=== PATIENT | male | born 1960 | race Caucasian/White ===

== ENCOUNTER 2024-06-29 17:49 | Emergency (ER) | payer MEDICARE, MEDICAID, SELFPAY ==
[2024-06-29] VITALS (12 sets, daily range): BP systolic 96–112; BP diastolic 56–73; PULSE 86–98; RESP 16–42; TEMP 36.2; O2SAT 92–98; BMI 29.6
--- NOTE | 2024-06-29 18:01 | DI.RAD.S_ITS ---
PROCEDURE: XR CHEST 1V INDICATIONS: chest pain TECHNIQUE: One view of the chest was acquired. COMPARISON: None. FINDINGS: Surgical changes and devices: None. Lungs and pleura: Generalized interstitial prominence can be seen. There is a small right-sided pleural effusion. No pneumothorax is seen. Mediastinum: Mediastinal contours appear normal. Heart size is moderately enlarged. Bones and chest wall: No suspicious bony lesions. Age-appropriate bony degenerative changes are seen. Overlying soft tissues appear unremarkable. IMPRESSION: There is moderate cardiomegaly with interstitial prominence and a right-sided pleural effusion. CHF is suspected. Dictated by: Manoj Allison M.D. on 06/29/2024 at 17:53 Approved by: Manoj Allison M.D. on 06/29/2024 at 17:54
--- NOTE | 2024-06-29 18:03 | EKG_ITS ---
[address] [address] Test Date: 2024-06-29 Pat Name: Justin Peña Department: Room: Gender: Male Labor Relations Officer: GOKUL : 1960 Requested By: Order Number: [id number] Reading MD: Roberto Ge MD Measurements Intervals [place] Rate: 88 P: 64 DE: 148 QRS: -31 QRSD: 90 T: 134 QT: 390 QTc: 471 Interpretive Statements Sinus rhythm with occasional premature ventricular complexes Left axis deviation Low voltage QRS Nonspecific ST and T wave abnormality Prolonged QT Electronically Signed On 06-30-2024 8:25:26 PDT by Roberto Ge MD
[2024-06-29] MEDS: ALBUTEROL/IPRATROPIUM 3 ML AMPUL INH (18:08)
--- NOTE | 2024-06-29 18:19 | ED_ITS ---
HPI - General Adult General Chief complaint: Shortness of Breath/Dyspnea Stated complaint: SOB Time Seen by Provider: 06/29/24 18:01 Mode of arrival: Ambulatory History of Present Illness HPI narrative: 64-year-old gentleman currently at [facility] living, history of congestive heart failure, COPD, thromboembolism, pulmonary and bilateral lower extremities, hypertension, hyperlipidemia and diabetes. Recent discharge from [facility] May 24 with heart failure, pleural effusion, pneumonia and acute respiratory failure with hypoxia records have been requested patient continues to smoke, states that he is being given all of his medications. Notes increasing lower extremity edema, orthopnea and dyspnea particularly exertional dyspnea. No palpitations, chest pain, productive cough, headache. He is on 2 L of oxygen at baseline. Brought in by medics for evaluation of increasing dyspnea and lower extremity edema. Related Data Allergies Allergy/AdvReac Type Severity Reaction Status Date / Time codeine Allergy Verified 06/29/24 17:50 Review of Systems Review of Systems Narrative: Pertinent positive and negative findings as per HPI Patient History Medical History (Updated 06/29/24 @ 21:41 by Tootie Forde MD) Tobacco use Hypertension Diabetes History of pulmonary embolism COPD (chronic obstructive pulmonary disease) Systolic heart failure Social History Smoking Status: Current every day smoker Smoking Status: Current every day smoker tobacco type: cigarettes Exam Initial Vital Signs Initial Vital Signs: Vital Signs Temperature 97.2 F L 06/29/24 17:50 Pulse Rate 89 06/29/24 17:50 Respiratory Rate 19 06/29/24 17:50 Blood Pressure 112/73 06/29/24 17:50 Pulse Oximetry 97 06/29/24 17:50 Oxygen Delivery Method Nasal Cannula 06/29/24 17:50 Oxygen Flow Rate 2.5 06/29/24 17:50 General: Chronically ill-appearing, somewhat disheveled, speaking 4-5 word sentences on 2.5 nasal cannula oxygen HEENT: Moist mucous membranes, normal sclera with reactive pupils, Respiratory: Lungs with audible wheeze from in the doorway after initial DuoNeb. Scattered wheeze throughout all lung badillo but relatively good air movement. Cardiac: Regular rate and rhythm no murmurs no bruits Abdomen: Soft, obese, nontender, no rebound or guarding, no flank pain Skin: Warm and dry, no rashes Neurologic: Grossly neurologically intact with no obvious asymmetries or abnormalities Extremities: No trauma, 1+ bilateral lower extremity edema with chronic stasis changes Psych: Cooperative, anxious, fluent thought process Course Orders Ordered: ED Orders 06/29/24 18:00 BNP [NT-proBNP (BNP-Adult 18+)] Stat Complete Blood Count AUTO DIFF Stat Comprehensive Metabolic Panel Stat Troponin & CK Cardiac Panel Stat 06/29/24 18:01 XR chest 1V Stat EKG-12 Lead Stat 06/29/24 18:50 Respiratory Panel (Film Array) Stat urine tox [Urine Drug Screen, Rapid] Stat Discontinued Medications Albuterol/Ipratropium (Albuterol/Ipratropium 3 Ml Ampul) 3 ml INH NOW ONE Stop: 06/29/24 18:02 Last Admin: 06/29/24 18:08 Dose: 3 ml Documented By: PALMER Furosemide (Furosemide 40 Mg/4 Ml Vial) 80 mg IV NOW ONE Stop: 06/29/24 18:59 Last Admin: 06/29/24 19:04 Dose: Not Given Documented By: RED Furosemide 80 mg/ Sodium (Chloride) 58 mls @ 116 mls/hr IV NOW ONE Stop: 06/29/24 18:37 Last Infusion: 06/29/24 19:50 Dose: Infused Documented By: Admin: 06/29/24 19:12 Dose: 116 mls/hr Documented By: ALEXIS Methylprednisolone (Methylprednisolone 125 Mg/2 Ml Vial) 125 mg IV NOW ONE Stop: 06/29/24 18:02 Last Admin: 06/29/24 18:25 Dose: 125 mg Documented By: BISI Vital Signs Vital signs: Vital Signs - 8 hr 06/29/24 17:50 06/29/24 18:09 06/29/24 18:10 Temperature 97.2 F L Pulse Rate 89 86 86 Respiratory Rate 19 16 21 Blood Pressure 112/73 Pulse Oximetry 97 96 98 Oxygen Delivery Method Nasal Cannula Nasal Cannula Oxygen Flow Rate 2.5 06/29/24 18:30 06/29/24 18:30 06/29/24 19:00 Temperature Pulse Rate 86 Respiratory Rate Blood Pressure 109/61 101/71 Pulse Oximetry 95 Oxygen Delivery Method Oxygen Flow Rate 06/29/24 19:00 06/29/24 19:30 04/19/25 19:31 Temperature Pulse Rate 86 91 H Respiratory Rate 17 38 H Blood Pressure 96/56 L Pulse Oximetry 98 95 Oxygen Delivery Method Oxygen Flow Rate 06/29/24 19:31 06/29/24 20:00 06/29/24 20:00 Temperature Pulse Rate 91 H 93 H Respiratory Rate 37 H 37 H Blood Pressure 98/70 Pulse Oximetry 95 94 Oxygen Delivery Method Oxygen Flow Rate 06/29/24 20:30 06/29/24 20:36 06/29/24 21:00 Temperature Pulse Rate 92 H 98 H 91 H Respiratory Rate 29 H 22 42 H Blood Pressure Pulse Oximetry 94 94 94 Oxygen Delivery Method Room Air Oxygen Flow Rate Medical Decision Making Lab Data 06/29/24 18:00 06/29/24 18:00 Labs: Lab Results 06/29/24 06/29/24 Range/Units 18:00 18:50 WBC 9.7 (4.5-11.0) X10^3/uL RBC 4.07 L (4.5-5.9) X10^6/uL Hgb 11.7 L (13.5-17.5) g/dL Hct 36.2 L (41-53) % MCV 89.0 (80-100) fL MCH 28.8 (26-34) PG MCHC 32.4 (30-36) % RDW 17.1 H (11.6-14.8) % Plt Count 145 L (150-400) X10^3/uL Neut % (Auto) 57.7 (50-75) % Lymph % (Auto) 21.5 L (25-40) % [place] % (Auto) 12.2 (3-14) % Eos % (Auto) 7.7 H (2-4) % Baso % (Auto) 0.9 (0-2) % Neut # (Auto) 5600 (3354-9611) /uL Lymph # (Auto) 2100 (2971-3320) /uL [place] # (Auto) 1200 H (0-900) /uL Eos # (Auto) 700 H (0-450) /uL Baso # (Auto) 100 (0-100) /uL Sodium 139 (137-145) mmol/L Potassium 4.4 (3.4-5.1) mmol/L Chloride 103 (98-107) mmol/L Carbon Dioxide 29 (22-32) mmol/L BUN 26 H (9-20) mg/dL Creatinine 1.19 (0.66-1.25) mg/dL Estimated GFR > 60 (>60) mL/min BUN/Creatinine Ratio 21.8 (6-22) Glucose 116 H (80-110) mg/dL Calcium 8.3 L (8.4-10.2) mg/dL Total Bilirubin 0.7 (0.2-1.3) mg/dL AST 35 (17-59) IU/L ALT 21 (<50) IU/L Alkaline Phosphatase 55 (38-126) U/L Total Creatine Kinase 145 (55-170) U/L Troponin I 0.142 H* (0.01-0.034) ng/mL NT-Pro-B Natriuret Pep 7130 H (<125) pg/mL Total Protein 8.0 (6.3-8.2) g/dL Albumin 4.1 (3.5-5.0) g/dL Globulin 3.9 (1.7-4.1) g/dL Albumin/Globulin Ratio 1.1 (1.0-2.8) U Opiates 300ng/mL cut Negative (Negative) Ur Oxycodone Screen Negative (Negative) Urine Methadone Screen Negative (Negative) Ur Barbiturates Screen Negative (Negative) U Tricyclic Antidepress Negative (Negative) Ur Phencyclidine Scrn Negative (Negative) Ur Amphetamines Screen Negative (Negative) U Methamphetamines Scrn Negative (Negative) Ur MDMA Scrn (Ecstasy) Negative (Negative) U Benzodiazepines Scrn Negative (Negative) Urine Cocaine Screen Negative (Negative) U Marijuana (THC) Screen Negative (Negative) Urine pH Normal (Normal) Urine Specific [place] Normal (Normal) Ur Creatinine Normal (Normal) Chlamy pneumoniae PCR Not detected (Not Detect) Adenovirus (PCR) Not detected (Not Detect) B. pertussis DNA (PCR) Not detected (Not Detect) B.parapertussis DNA PCR Not detected (Not Detecte) Coronavirus OC43 (PCR) Not detected (Not Detect) Coronavirus HKU1 (PCR) Not detected (Not Detect) Coronavirus 229E (PCR) Not detected (Not Detect) SARS-CoV-2 (PCR) Not detected (Not Detecte) Coronavirus NL63 (PCR) Not detected (Not Detect) Human Metapneumovir PCR Not detected (Not Detect) Influenza Type A (PCR) Not detected (Not Detect) Influenza Type B (PCR) Not detected (Not Detect) M. pneumoniae (PCR) Not detected (Not Detect) Parainfluenza 1 (PCR) Not detected (Not Detect) Parainfluenza 2 (PCR) Not detected (Not Detect) Parainfluenza 3 (PCR) Not detected (Not Detect) Parainfluenza 4 (PCR) Not detected (Not Detect) RSV (PCR) Not detected (Not Detect) Entero/Rhino (PCR) Not detected (Not Detect) MDM Narrative Medical decision making narrative: CC: Dyspnea Complicating co-morbidities: COPD, heart failure, recent pleural effusion that was drained, discharge from [facility] May 24 for similar presentation, Data collected from: patient, summary records from [facility] Social determinants of health that may influence the patients condition: Currently at [facility], homeless prior to that Medical records reviewed: Notes from [facility], ROSI report, records from [facility] have been requested Discussion with Dr. Ramirez, electric fan assembler at [facility] to review recent hospitalization, workup and imaging studies. On June 05 patient was discharged from [facility] his ejection fraction is 16%, there is history of methamphetamine use and abuse. He has a chronic right pleural effusion that has been tapped and is not infectious. He was discharged home with Eliquis, Flovent, mirtazapine, spironolactone, Lasix at 40 mg daily, albuterol, Jardiance, lisinopril, metoprolol and an Ellipta inhaler. In reviewing [facility] MAR it does appear that he is getting all of these medications. Discussed his chest x-ray showing significant heart failure as well as his elevated BNP and slightly elevated troponin. He has a chronically elevated troponin and Dr. Raimrez did not feel that this was related to acute coronary syndrome. His recommendation was diuresis and continue current treatment. Differential considered: Pneumothorax, COPD exacerbation, exacerbation of congestive heart failure, viral syndrome exacerbating all of the above, acute coronary syndrome Exam documented above, pertinent findings include: Patient is anxious, tachypneic, speaking in 4-5 word sentences significant wheeze in all lung badillo without obvious rhonchi, 1+ bilateral lower extremity edema Lab Test results independently reviewed as above. Pertinent findings: CBC shows mild anemia at 11.7 and 36.2. No leukocytosis. Platelets are 145 Chemistries show creatinine at 1.19 GFR greater than 60, sodium potassium appropriate. Liver enzymes are unremarkable Trop elevated at .142 BNP elevated at 7130 neg resp panel Independently reviewed EKG: Sinus rhythm, PVCs. Lateral ST depression, no STEMI criteria are met Imaging studies independently reviewed: Chest x-ray shows right pleural effusion, diffuse congestive heart failure with cardiomegaly Consultations: Cardiology at [facility], recommendation was diuresis continue current medications did not need heparin or additional workup for acute coronary syndrome Treatments: 80 mg of IV Lasix was given with over 1200 cc of urine out. Discussion: 64-year-old gentleman in moderate respiratory distress on arrival. Able to speak in 4-5 word sentences, had increased his home oxygen slightly. Diffuse wheeze throughout, increased lower extremity edema. Describes no fevers or productive cough. Workup suggests significant heart failure with chronically elevated troponin and response to the heart failure severity. Remainder of blood work was unremarkable, respiratory panel was done and did not show any complicating respiratory virus. Findings reviewed with the patient and my recommendation was hospitalization for diuresis. With shared decision-making, we decided to change that plan to outpatient increase in Lasix from 40 mg in the morning to 40 mg twice a day. He is feeling significantly better and symptoms are significantly improved after the more than 1200 cc of urine out in the emergency department. Discharge instructions including note to [facility] to increase his Lasix are printed and he is waiting for his BLS ride back to [facility]. Patient becomes increasingly agitated and demands to leave. He was allowed to leave, he called for a CAB from the waiting room. We did contact [facility] to send his discharge instructions to them, let them know he is coming back and make sure they are aware of the increased Lasix dosing. Discharge Plan Departure Patient Disposition: Home Clinical Impression: Chronic pleural effusion Acute exacerbation of CHF (congestive heart failure) Qualifiers: Heart failure type: unspecified Qualified Code(s): I50.9 - Heart failure, unspecified Instructions: Congestive Heart Failure (Alternative Therapy) Activity Restrictions/Additional Instructions: Thank you for coming in today I spoke with 1 of the cardiologists at [facility] and reviewed all of your recent workup and findings. You do have a small effusion on the right side of your lungs that actually is better than it was before You have congestive heart failure and are having an acute exacerbation. We need to increase her Lasix. In the emergency department you were given 80 mg and you have put out over 1200 cc. This is likely why you feel so much better and her back to your baseline oxygen level. For the next week I want you to increase your furosemide from 40 mg once a day to 40 mg in the morning and at noon. Please ask the staff at your assisted living facility to help you find and establish care with a primary care physician. You do need hospital follow up You had some slightly abnormal labs in the emergency room today however these are similar to improved from your recent hospital stay. We discussed going home versus staying in the hospital and you very much preferred home discharge. If you find that you are having more short of breath, chest pain or things are changing it would be very appropriate to return to the ER For [facility] staff: Please change Lasix order to 40 mg of Lasix p.o. morning and noon for a total of 7 days then return to 40 mg in the morning only Referrals: Miscellaneous,Doctor, [Non-Staff] - Stand Alone Forms: Patient Portal/API/Survey
[2024-06-29 18:21] LABS: Add Manual Diff / Slide Review NO; Basophils Absolute Auto 100 /uL (0-100); Basophils Percent Auto 0.9 % (0-2); Eosinophils Absolute Auto 700 /uL (0-450); Eosinophils Percent Auto 7.7 % (2-4); Hematocrit 36.2 % (41-53); Hemoglobin 11.7 g/dL (13.5-17.5); Lymphocytes Absolute Auto 2100 /uL (1100-4500); Lymphocytes Percent Auto 21.5 % (25-40); Mean Corpuscular HGB Conc 32.4 % (30-36); Mean Corpuscular Hemoglobin 28.8 PG (26-34); Monocytes Absolute Auto 1200 /uL (0-900); Monocytes Percent Auto 12.2 % (3-14); Neutrophils Absolute Auto 5600 /uL (1500-7000); Neutrophils Percent Auto 57.7 % (50-75); Platelet Count 145 X10^3/uL (150-400); Red Blood Cell Count 4.07 X10^6/uL (4.5-5.9); Red Cell Distribution Width 17.1 % (11.6-14.8); White Blood Cell Count 9.7 X10^3/uL (4.5-11.0)
[2024-06-29 18:25] LABS: Alanine Aminotransferase 21 IU/L (<50); Albumin 4.1 g/dL (3.5-5.0); Albumin Globulin Ratio 1.1 (1.0-2.8); Alkaline Phosphatase 55 U/L (38-126); Aspartate Aminotransferase 35 IU/L (17-59); BUN Creatinine Ratio 21.8 (6-22); Bilirubin Total 0.7 mg/dL (0.2-1.3); Blood Urea Nitrogen 26 mg/dL (9-20); Calcium 8.3 mg/dL (8.4-10.2); Carbon Dioxide 29 mmol/L (22-32); Chloride 103 mmol/L (98-107); Estimated Glomerular Filt Rate > 60 mL/min (>60); Globulin 3.9 g/dL (1.7-4.1); Glucose 116 mg/dL (80-110); HEMOLYSIS 46 (0-50); Potassium 4.4 mmol/L (3.4-5.1); Sodium 139 mmol/L (137-145)
[2024-06-29] MEDS: methylPREDNISolone 125 MG/2 ML VIAL IV (18:25)
--- NOTE | 2024-06-29 18:40 | PC.NURSE ---
Pt reports improvement after breathing treatment. Mild expiratory wheezing note
[2024-06-29 18:57] LABS: Creatine Kinase 145 U/L (55-170)
[2024-06-29 19:02] LABS: Ur Creatinine Normal (Normal); Ur Specific Gravity Normal (Normal); Urine Amphetamines Negative (Negative); Urine Barbiturates Negative (Negative); Urine Benzodiazepines Negative (Negative); Urine Cocaine Negative (Negative); Urine MDMA Negative (Negative); Urine Methadone Negative (Negative); Urine Opiates Negative (Negative); Urine Oxycodone Negative (Negative); Urine Phencyclidine Negative (Negative); Urine THC Negative (Negative); Urine Tricyclic Antidepressant Negative (Negative); Urine pH Normal (Normal)
[2024-06-29 19:10] LABS: NT-proBNP (BNP-Adult 18+) 7130 pg/mL (<125)
[2024-06-29 19:12] LABS: Troponin I 0.142 ng/mL (0.01-0.034)
[2024-06-29] MEDS: FUROSEMIDE 80 MG in SODIUM CHLORIDE 0.9% 50 ML 116 MG IV (19:12)
--- NOTE | 2024-06-29 19:15 | PC.NURSE ---
Worsening sob today; expiratory wheezing. Edema noted on lower extremity. pt reports he has chf and copd. no cough. no recent fevers.
[2024-06-29 19:45] LABS: Adenovirus Not Detected (Not Detect); B. parapertussis Not Detected (Not Detecte); Bordetella pertussis Not Detected (Not Detect); Chlamydophila pneumoniae Not Detected (Not Detect); Coronavirus 229E Not Detected (Not Detect); Coronavirus HKU1 Not Detected (Not Detect); Coronavirus NL 63 Not Detected (Not Detect); Coronavirus OC43 Not Detected (Not Detect); Human Metapneumovirus Not Detected (Not Detect); Human Rhinovirus/Enterovirus Not Detected (Not Detect); Influenza A Not Detected (Not Detect); Influenza B Not Detected (Not Detect); Mycoplasma pneumoniae Not Detected (Not Detect); Parainfluenza Virus 1 Not Detected (Not Detect); Parainfluenza Virus 2 Not Detected (Not Detect); Parainfluenza Virus 3 Not Detected (Not Detect); Parainfluenza Virus 4 Not Detected (Not Detect); Respiratory Syncytial Virus Not Detected (Not Detect); SARS- CoV-2 Not Detected (Not Detecte)
--- NOTE | 2024-06-29 21:30 | PC.NURSE ---
Pt pacing around exam room swearing and yelling about wanting to leave, how long he has been here and Bitch, get in here and do your fucking job! Confirmed pt has no current needs other than wanting to leave. Pt continues to use aggressive language and yell but is not physically threatening. Exam room door closed to reduce noise from exam room, curtain open to facilitate increased observation.
--- NOTE | 2024-06-29 21:35 | PC.NURSE ---
Pt informed ambulance ([facility]) has been contacted to transport pt back to assisted living facility, ETA [id number]. Pt continues to use use inappropriate and aggressive language at staff. Exam room door again closed, curtain remains open for increased observation.
--- NOTE | 2024-06-29 22:25 | PC.NURSE ---
Pt walks out of exam room to exit doors and leave department at this time. Per registration taxi called per pt request.
== END 2024-06-29 22:25 | disposition home or self-care (01) ==
PROVIDERS: Emergency Medicine; Emergency Provider Emergency Medicine; PCP Anesthesiology Pediatric Anesthesiology
DX: J90 Pleural effusion, not elsewhere classified (principal); I50.9 Heart failure, unspecified; J44.9 Chronic obstructive pulmonary disease, unspecified; E11.9 Type 2 diabetes mellitus without complications; I10 Essential (primary) hypertension; E78.5 Hyperlipidemia, unspecified
CPT/HCPCS: 36415; 71045; 80053; 80305; 82550; 83880; 84484; 85025; 87633; 93005; 93010; 94640; 96365; 96375; 99285; J1938; J2919

== ENCOUNTER 2024-07-04 17:47 | Emergency (ER) | payer MEDICARE, MEDICAID, SELFPAY ==
[2024-07-04 17:48] VITALS: BP 124/79; PULSE 104; RESP 24; TEMP 36.6; O2SAT 96; BMI 30.2
--- NOTE | 2024-07-04 17:57 | DI.RAD.S_ITS ---
PROCEDURE: XR CHEST 1V INDICATIONS: Shortness of breath TECHNIQUE: One view of the chest was acquired. COMPARISON: [facility], , XR CHEST 1V, 06/29/2024, 18:06. FINDINGS: Surgical changes and devices: None. Lungs and pleura: No pneumothorax. Small right pleural effusion with subjacent atelectasis persists.. Increased interstitial markings. Mediastinum: Mediastinal contours appear normal. Heart size is enlarged. Bones and chest wall: No suspicious bony lesions. Overlying soft tissues appear unremarkable. IMPRESSION: Persistent small right pleural effusion with subjacent atelectasis. Cardiomegaly with persistent background of increased interstitial markings may represent mild pulmonary edema. Approved by: Maddy Marks M.D.,Ph.D. on 07/04/2024 at 19:07
[2024-07-04 18:09] LABS: Add Manual Diff / Slide Review NO; Basophils Absolute Auto 100 /uL (0-100); Basophils Percent Auto 1.3 % (0-2); Eosinophils Absolute Auto 600 /uL (0-450); Eosinophils Percent Auto 6.4 % (2-4); Hematocrit 37.2 % (41-53); Hemoglobin 12.1 g/dL (13.5-17.5); Lymphocytes Absolute Auto 2500 /uL (1100-4500); Lymphocytes Percent Auto 25.6 % (25-40); Mean Corpuscular HGB Conc 32.5 % (30-36); Mean Corpuscular Hemoglobin 28.8 PG (26-34); Mean Corpuscular Volume 88.5 fL (80-100); Monocytes Absolute Auto 1300 /uL (0-900); Monocytes Percent Auto 12.9 % (3-14); Neutrophils Absolute Auto 5300 /uL (1500-7000); Neutrophils Percent Auto 53.8 % (50-75); Platelet Count 140 X10^3/uL (150-400); Red Cell Distribution Width 16.8 % (11.6-14.8); White Blood Cell Count 9.8 X10^3/uL (4.5-11.0)
--- NOTE | 2024-07-04 18:11 | EKG_ITS ---
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
[2024-07-04] MEDS: ALBUTEROL/IPRATROPIUM 3 ML AMPUL 9 ML INH (18:15)
[2024-07-04 18:16] VITALS: PULSE 106; RESP 18; O2SAT 97
[2024-07-04 18:25] LABS: INR 1.4 (0.9-1.3); Prothrombin Time 16.1 SECONDS (9.4-12.5)
--- NOTE | 2024-07-04 18:27 | ED.SOB ---
HPI - SOB/Dyspnea General Chief Complaint: Shortness of Breath/Dyspnea Stated Complaint: SOB Time Seen by Provider: 07/04/24 18:15 Source: patient Mode of arrival: Ambulatory History of Present Illness HPI Narrative: 64-year-old gentleman history of COPD on home O2 2 L CHF hypertension dyslipidemia and diabetes and history of thromboembolism presents with cough shortness of breath that has been ongoing for some time now but over this past few days he has been more short of breath than usual. He said that he was at [facility] over 10 days ago and they drained few bottles of fluid from his right lung. He is not actively having chest pain and denies fever and chills at this time. Other than what is stated 14 point review of system is negative Related Data Allergies Allergy/AdvReac Type Severity Reaction Status Date / Time codeine Allergy Verified 06/29/24 17:50 Review of Systems Review of Systems ROS Unobtainable: All systems reviewed & are unremarkable except as noted in HPI and below Patient History Medical History (Updated 07/04/24 @ 19:26 by Janel Padilla RN) Tobacco use Hypertension Diabetes History of pulmonary embolism COPD (chronic obstructive pulmonary disease) Systolic heart failure tobacco type: cigarettes Exam Narrative Exam Narrative: GENERAL: 64 year old patient appears stated age. Well-developed patient, in mild distress. HEAD: Atraumatic. Normocephalic. EYES: Pupils equal round and reactive. Extraocular motions intact. No scleral icterus. No injection or drainage. ENT: Nose without bleeding, purulent drainage. Throat without erythema, tonsillar hypertrophy or exudate. Airway patent. NECK: Trachea midline. Non tender CARDIOVASCULAR: Regular rate and rhythm without murmurs, gallops, or rubs. RESPIRATORY: Diminshed breath sounds b/l , trace edema b/l GASTROINTESTINAL: Abdomen soft, non-tender, nondistended. EXTREMITIES: No edema or joint tenderness. BACK: Nontender without deformity or crepitance. No flank tenderness. NEURO: AOx3. SKIN: No rash or erythema of visible areas Initial Vital Signs Initial Vital Signs: Vital Signs Temperature 98 F 07/04/24 17:48 Pulse Rate 104 H 07/04/24 17:48 Respiratory Rate 24 07/04/24 17:48 Blood Pressure 124/79 07/04/24 17:48 Pulse Oximetry 96 07/04/24 17:48 Oxygen Delivery Method Nasal Cannula 07/04/24 17:48 Oxygen Flow Rate 2 07/04/24 17:48 Course Orders Ordered: ED Orders 07/04/24 17:57 XR chest 1V Stat EKG-12 Lead Stat Measure peak expiratory flow ONCE RT Consult Eval and Treat NOW 07/04/24 18:00 Complete Blood Count AUTO DIFF Stat Comprehensive Metabolic Panel Stat Lactate (Lactic Acid) Stat NT-proBNP (BNP-Adult 18+) Stat Prothrombin Time INR Stat Troponin I Stat Discontinued Medications Albuterol/Ipratropium (Albuterol/Ipratropium 3 Ml Ampul) 9 ml INH NOW ONE Stop: 07/04/24 18:04 Last Admin: 07/04/24 18:15 Dose: 9 ml Documented By: PALMER Furosemide (Furosemide 40 Mg/4 Ml Vial) 40 mg IV NOW ONE Stop: 07/04/24 18:50 Last Admin: 07/04/24 18:56 Dose: 40 mg Documented By: BISI Methylprednisolone (Methylprednisolone 125 Mg/2 Ml Vial) 125 mg IV NOW ONE Stop: 07/04/24 18:31 Last Admin: 07/04/24 18:37 Dose: 125 mg Documented By: BISI Vital Signs Vital signs: Vital Signs - 8 hr 07/04/24 17:48 07/04/24 18:16 07/04/24 18:57 Temperature 98 F Pulse Rate 104 H 106 H 101 H Respiratory Rate 24 18 22 Blood Pressure 124/79 Pulse Oximetry 96 97 95 Oxygen Delivery Method Nasal Cannula Nasal Cannula Oxygen Flow Rate 2 2 07/04/24 19:00 Temperature Pulse Rate 101 H Respiratory Rate 25 H Blood Pressure Pulse Oximetry 96 Oxygen Delivery Method Oxygen Flow Rate MDM - SOB/Dyspnea Lab Data 07/04/24 18:00 07/04/24 18:00 Labs: Lab Results 07/04/24 Range/Units 18:00 WBC 9.8 (4.5-11.0) X10^3/uL RBC 4.20 L (4.5-5.9) X10^6/uL Hgb 12.1 L (13.5-17.5) g/dL Hct 37.2 L (41-53) % MCV 88.5 (80-100) fL MCH 28.8 (26-34) PG MCHC 32.5 (30-36) % RDW 16.8 H (11.6-14.8) % Plt Count 140 L (150-400) X10^3/uL Neut % (Auto) 53.8 (50-75) % Lymph % (Auto) 25.6 (25-40) % [place] % (Auto) 12.9 (3-14) % Eos % (Auto) 6.4 H (2-4) % Baso % (Auto) 1.3 (0-2) % Neut # (Auto) 5300 (9828-5612) /uL Lymph # (Auto) 2500 (0112-1446) /uL [place] # (Auto) 1300 H (0-900) /uL Eos # (Auto) 600 H (0-450) /uL Baso # (Auto) 100 (0-100) /uL PT 16.1 H (9.4-12.5) SECONDS INR 1.4 H (0.9-1.3) Sodium 137 (137-145) mmol/L Potassium 4.0 (3.4-5.1) mmol/L Chloride 101 (98-107) mmol/L Carbon Dioxide 28 (22-32) mmol/L BUN 23 H (9-20) mg/dL Creatinine 1.17 (0.66-1.25) mg/dL Estimated GFR > 60 (>60) mL/min BUN/Creatinine Ratio 19.7 (6-22) Glucose 111 H (70-99) mg/dL Lactate 1.4 (0.7-2.1) mmol/L Calcium 8.3 L (8.4-10.2) mg/dL Total Bilirubin 0.7 (0.2-1.3) mg/dL AST 33 (17-59) IU/L ALT 21 (<50) IU/L Alkaline Phosphatase 58 (38-126) U/L Troponin I 0.169 H* (0.01-0.034) ng/mL NT-Pro-B Natriuret Pep 7800 H (<125) pg/mL Total Protein 8.1 (6.3-8.2) g/dL Albumin 4.4 (3.5-5.0) g/dL Globulin 3.7 (1.7-4.1) g/dL Albumin/Globulin Ratio 1.2 (1.0-2.8) ECG Data Interpretation: Sinus Tach No st-t wave change Unchanged from06/29/24 PR136 QRS 92 QT 368 MDM Narrative Medical decision making narrative: All lab work EKG chest x-ray vital signs nurse triage note medication list and all previous visits reviewed. Patient given Solu-Medrol 125 mg IV and Lasix 40 mg here. Case was discussed with Dr. White who was who was concerned patient has severe cardiomyopathy with ejection fraction of 16 70% from May of this here in [facility] the patient would be at risk to be sent home and needed to be diuresed. The construction quality control manager recommended patient be admitted to the hospitalist service and no aspirin or heparin at this time. Patient eloped while here in the ER Discharge Plan Departure Patient Disposition: Left Against Medical Advice Clinical Impression: Left against medical advice Referrals: Naif Lynne,See [Primary Care Provider] - Stand Alone Forms: Patient Portal/API, Against Med. Advice (Slovenian)
[2024-07-04 18:32] LABS: Lactate (Lactic Acid) 1.4 mmol/L (0.7-2.1)
[2024-07-04 18:34] LABS: Alanine Aminotransferase 21 IU/L (<50); Albumin 4.4 g/dL (3.5-5.0); Albumin Globulin Ratio 1.2 (1.0-2.8); Alkaline Phosphatase 58 U/L (38-126); Aspartate Aminotransferase 33 IU/L (17-59); BUN Creatinine Ratio 19.7 (6-22); Bilirubin Total 0.7 mg/dL (0.2-1.3); Blood Urea Nitrogen 23 mg/dL (9-20); Calcium 8.3 mg/dL (8.4-10.2); Carbon Dioxide 28 mmol/L (22-32); Chloride 101 mmol/L (98-107); Estimated Glomerular Filt Rate > 60 mL/min (>60); Globulin 3.7 g/dL (1.7-4.1); Glucose 111 mg/dL (70-99); HEMOLYSIS 16 (0-50); Sodium 137 mmol/L (137-145); Total Protein 8.1 g/dL (6.3-8.2)
[2024-07-04] MEDS: methylPREDNISolone 125 MG/2 ML VIAL IV (18:37)
[2024-07-04 18:45] LABS: NT-proBNP (BNP-Adult 18+) 7800 pg/mL (<125)
[2024-07-04 18:48] LABS: Troponin I 0.169 ng/mL (0.01-0.034)
--- NOTE | 2024-07-04 18:50 | PC.NURSE ---
Pt reports SOB x2-3 days. Pt seen here last week for same. Pt reports he is compliant with home meds. Pt states he feels better after nebulizer treatment; however he does not own one at home.
[2024-07-04] MEDS: FUROSEMIDE 40 MG/4 ML VIAL IV (18:56)
[2024-07-04 18:57] VITALS: PULSE 101; RESP 22; O2SAT 95
[2024-07-04 19:00] VITALS: PULSE 101; RESP 25; O2SAT 96
--- NOTE | 2024-07-04 19:20 | PC.NURSE ---
1919 patient took off bp cuff and states Im leaving, Im getting out of here, unhook me and take my IV out, I'll call a cab patient took home oxygen tubing with. 1929 Patient leaving AMA and declines to stay for further workup, I have been here too long Explained the patient has only been here 1 hour and 20 minutes in that time labs, xrays, and medications have been given. Patient states I dont care Asked patient what he wanted accomplished in the 1 hour 20 mins that we have not yet and he states nothing, Brook just been waiting too long PIV removed and patient ambulated independently to waiting area with coat, clothing, cellphone, and oxygen tubing for home to contact cab for ride home.
--- NOTE | 2024-07-04 19:29 | PC.NURSE ---
Pt called [facility], they called back due to missing someones call. Advised us that they will be 20 minutes. This nurse walked out to front of building to advise pt.
--- NOTE | 2024-07-05 04:52 | PC.NURSE ---
Paperwork faxed to [facility] for pt to follow up.
== END 2024-07-04 19:25 | disposition left against medical advice (07) ==
PROVIDERS: Emergency Medicine; Emergency Provider Family Medicine; PCP Anesthesiology Pediatric Anesthesiology
DX: R00.0 Tachycardia, unspecified (principal); J44.9 Chronic obstructive pulmonary disease, unspecified; R06.02 Shortness of breath
CPT/HCPCS: 71045; 80053; 83605; 83880; 84484; 85025; 85610; 93005; 93010; 94640; 96374; 96375; 99284; J1938; J2919

== ENCOUNTER 2024-07-06 19:43 | Emergency (ER) | payer MEDICARE, MEDICAID, SELFPAY ==
[2024-07-06] VITALS (13 sets, daily range): BP systolic 107–133; BP diastolic 61–77; PULSE 96–102; RESP 12–26; TEMP 36.3–36.6; O2SAT 92–99; BMI 27.3
--- NOTE | 2024-07-06 19:48 | EKG_ITS ---
[address] [address] Test Date: 2024-07-06 Pat Name: Justin Peña Department: Room: Gender: Male [employer]: : 1960 Requested By: Order Number: [id number] Reading MD: Roberto Ge MD Measurements Intervals [place] Rate: 100 P: 89 TX: 142 QRS: -31 QRSD: 88 T: 121 QT: 364 QTc: 469 Interpretive Statements NO SIGNIFICANT CHANGE FROM PRIOR TRACING Normal sinus rhythm Left axis deviation Pulmonary disease pattern Nonspecific T wave abnormality Prolonged QT Electronically Signed On 07-07-2024 7:58:10 PDT by Roberto Ge MD
--- NOTE | 2024-07-06 19:53 | DI.RAD.S_ITS ---
PROCEDURE: XR CHEST 1V INDICATIONS: Shortness of breath TECHNIQUE: One view of the chest was acquired. COMPARISON: [facility], CR, XR CHEST 1V, 06/29/2024, 18:06. Outside Facility, CR, XR CHEST 1V, 06/03/2024, 15:22. [facility], CR, XR CHEST 1V, 07/04/2024, 18:02. FINDINGS: Surgical changes and devices: None. Lungs and pleura: Generalized abnormal interstitial prominence is seen. There is blunting of the right costophrenic angle. No pneumothorax is seen. Low lung volumes can be seen, with a decreased inspiratory result compared to the prior. Mediastinum: Mediastinal contours appear normal. Heart size is moderately enlarged. Bones and chest wall: No suspicious bony lesions. Age-appropriate bony degenerative changes are seen. Overlying soft tissues appear unremarkable. IMPRESSION: Cardiomegaly with interstitial prominence and a right-sided pleural effusion. CHF is suspected. Dictated by: Manoj Allison M.D. on 07/06/2024 at 19:51 Approved by: Manoj Allison M.D. on 07/06/2024 at 19:52
[2024-07-06] MEDS: ALBUTEROL/IPRATROPIUM 3 ML AMPUL INH ×2 (20:00→20:36)
[2024-07-06 20:04] LABS: Add Manual Diff / Slide Review NO; Basophils Absolute Auto 100 /uL (0-100); Basophils Percent Auto 1.2 % (0-2); Eosinophils Absolute Auto 400 /uL (0-450); Hematocrit 38.5 % (41-53); Hemoglobin 12.4 g/dL (13.5-17.5); Lymphocytes Absolute Auto 2300 /uL (1100-4500); Lymphocytes Percent Auto 21.5 % (25-40); Mean Corpuscular HGB Conc 32.1 % (30-36); Mean Corpuscular Hemoglobin 28.4 PG (26-34); Mean Corpuscular Volume 88.6 fL (80-100); Monocytes Absolute Auto 1300 /uL (0-900); Monocytes Percent Auto 12.7 % (3-14); Neutrophils Absolute Auto 6400 /uL (1500-7000); Neutrophils Percent Auto 60.6 % (50-75); Platelet Count 148 X10^3/uL (150-400); Red Blood Cell Count 4.34 X10^6/uL (4.5-5.9); Red Cell Distribution Width 17.1 % (11.6-14.8); White Blood Cell Count 10.5 X10^3/uL (4.5-11.0)
[2024-07-06 20:05] LABS: INR 1.4 (0.9-1.3); Prothrombin Time 15.9 SECONDS (9.4-12.5)
[2024-07-06 20:07] LABS: Lactate (Lactic Acid) 1.6 mmol/L (0.7-2.1)
[2024-07-06 20:08] LABS: Alanine Aminotransferase 24 IU/L (<50); Albumin 4.4 g/dL (3.5-5.0); Albumin Globulin Ratio 1.2 (1.0-2.8); Alkaline Phosphatase 61 U/L (38-126); Aspartate Aminotransferase 33 IU/L (17-59); BUN Creatinine Ratio 26.3 (6-22); Bilirubin Total 0.7 mg/dL (0.2-1.3); Blood Urea Nitrogen 31 mg/dL (9-20); Calcium 8.6 mg/dL (8.4-10.2); Carbon Dioxide 29 mmol/L (22-32); Chloride 100 mmol/L (98-107); Estimated Glomerular Filt Rate > 60 mL/min (>60); Globulin 3.6 g/dL (1.7-4.1); Glucose 113 mg/dL (70-99); HEMOLYSIS < 15 (0-50); Sodium 138 mmol/L (137-145)
[2024-07-06 20:20] LABS: NT-proBNP (BNP-Adult 18+) 7270 pg/mL (<125); Troponin I 0.095 ng/mL (0.01-0.034)
[2024-07-06] MEDS: methylPREDNISolone 125 MG/2 ML VIAL IV (20:45)
--- NOTE | 2024-07-06 22:02 | ED.SOB ---
HPI - SOB/Dyspnea General Chief Complaint: Shortness of Breath/Dyspnea Stated Complaint: COPD SOB Time Seen by Provider: 07/06/24 20:28 Source: patient and EMS Mode of arrival: EMS Limitations: no limitations History of Present Illness HPI Narrative: 64-year-old male with history of chronic hypoxia 2 L nasal cannula at home, hypertension, cardiomyopathy, diabetes, hyperlipidemia, seen 2 days ago here for evaluation of shortness of breath with phone Cardiology consult to Dr. White who recommended admission, however at that time patient had eloped after receiving IV Solu-Medrol and IV Lasix and Atrovent breathing treatments. Patient reportedly had right-sided paracentesis at [facility] within the last couple of weeks. Patient states that he was at his [place] care facility tonight when he felt more short of breath. Denies chest pain. Related Data Allergies Allergy/AdvReac Type Severity Reaction Status Date / Time codeine Allergy Verified 06/29/24 17:50 Patient History Medical History (Updated 07/07/24 @ 00:15 by Angi Schultz RN) Tobacco use Hypertension Diabetes History of pulmonary embolism COPD (chronic obstructive pulmonary disease) Systolic heart failure Social History Smoking Status: Current every day smoker Smoking Status: Current every day smoker tobacco type: cigarettes Exam Narrative Exam Narrative: GENERAL: Well-developed patient, in mild distress. HEAD: Atraumatic. Normocephalic. EYES: Pupils equal round and reactive. Extraocular motions intact. No scleral icterus. No injection or drainage. ENT: Nose without bleeding, purulent drainage. Throat without erythema, tonsillar hypertrophy or exudate. Airway patent. NECK: Trachea midline. Non tender CARDIOVASCULAR: Regular rate and rhythm without murmurs, gallops, or rubs. RESPIRATORY: Clear to auscultation. Breath sounds equal bilaterally. No wheezes, rales, or rhonchi. GASTROINTESTINAL: Abdomen soft, non-tender, nondistended. EXTREMITIES: No edema or joint tenderness. BACK: Nontender without deformity or crepitance. No flank tenderness. NEURO: AOx3. Motor functions grossly nonfocal SKIN: No rash or erythema of visible areas Initial Vital Signs Initial Vital Signs: Vital Signs Pulse Rate 102 H 07/06/24 19:45 Respiratory Rate 20 07/06/24 19:45 Blood Pressure 128/77 07/06/24 19:45 Pulse Oximetry 92 07/06/24 19:45 Oxygen Delivery Method Nasal Cannula 07/06/24 19:45 Oxygen Flow Rate 3 07/06/24 19:45 Course Orders Ordered: ED Orders 07/06/24 21:45 Trop I [Troponin I] Stat Discontinued Medications Albuterol/Ipratropium (Albuterol/Ipratropium 3 Ml Ampul) 3 ml INH Q1H PRN PRN Reason: Shortness Of Breath Last Admin: 07/06/24 20:36 Dose: 3 ml Documented By: Albuterol/Ipratropium (Albuterol/Ipratropium 3 Ml Ampul) 3 ml INH NOW ONE Stop: 07/06/24 20:29 Furosemide (Furosemide 40 Mg/4 Ml Vial) 40 mg IV NOW ONE Stop: 07/06/24 22:16 Last Admin: 07/06/24 22:26 Dose: 40 mg Documented By: (2) Methylprednisolone (Methylprednisolone 125 Mg/2 Ml Vial) 125 mg IV NOW ONE Stop: 07/06/24 20:30 Last Admin: 07/06/24 20:45 Dose: 125 mg Documented By: KEYLA Vital Signs Vital signs: Vital Signs - 8 hr 07/06/24 22:00 07/06/24 22:31 07/06/24 23:00 Pulse Rate 96 H 96 H 97 H Respiratory Rate 20 17 17 Pulse Oximetry 97 96 Oxygen Delivery Method Nasal Cannula Nasal Cannula Oxygen Flow Rate 2 2 MDM - SOB/Dyspnea Lab Data Attestation: I reviewed the patient's lab results. Lab results narrative: White blood cell count 25785, hemoglobin 12.4, platelets adequate. BUN 31 with creatinine 1.18. Glucose 113. Electrolytes and carbon dioxide unremarkable. INR 1.4 normal. Lactate 1.6. BNP 7270 similarly elevated in recent visits. Troponin 0.095 indeterminate, was further elevated recent visit. 07/06/24 19:40 07/06/24 19:40 Labs: Lab Results 07/06/24 07/06/24 Range/Units 19:40 21:45 WBC 10.5 (4.5-11.0) X10^3/uL RBC 4.34 L (4.5-5.9) X10^6/uL Hgb 12.4 L (13.5-17.5) g/dL Hct 38.5 L (41-53) % MCV 88.6 (80-100) fL MCH 28.4 (26-34) PG MCHC 32.1 (30-36) % RDW 17.1 H (11.6-14.8) % Plt Count 148 L (150-400) X10^3/uL Neut % (Auto) 60.6 (50-75) % Lymph % (Auto) 21.5 L (25-40) % [place] % (Auto) 12.7 (3-14) % Eos % (Auto) 4.0 (2-4) % Baso % (Auto) 1.2 (0-2) % Neut # (Auto) 6400 (8068-7206) /uL Lymph # (Auto) 2300 (8144-6363) /uL [place] # (Auto) 1300 H (0-900) /uL Eos # (Auto) 400 (0-450) /uL Baso # (Auto) 100 (0-100) /uL PT 15.9 H (9.4-12.5) SECONDS INR 1.4 H (0.9-1.3) Sodium 138 (137-145) mmol/L Potassium 4.0 (3.4-5.1) mmol/L Chloride 100 (98-107) mmol/L Carbon Dioxide 29 (22-32) mmol/L BUN 31 H (9-20) mg/dL Creatinine 1.18 (0.66-1.25) mg/dL Estimated GFR > 60 (>60) mL/min BUN/Creatinine Ratio 26.3 H (6-22) Glucose 113 H (70-99) mg/dL Lactate 1.6 (0.7-2.1) mmol/L Calcium 8.6 (8.4-10.2) mg/dL Total Bilirubin 0.7 (0.2-1.3) mg/dL AST 33 (17-59) IU/L ALT 24 (<50) IU/L Alkaline Phosphatase 61 (38-126) U/L Troponin I 0.095 H 0.085 H (0.01-0.034) ng/mL NT-Pro-B Natriuret Pep 7270 H (<125) pg/mL Total Protein 8.0 (6.3-8.2) g/dL Albumin 4.4 (3.5-5.0) g/dL Globulin 3.6 (1.7-4.1) g/dL Albumin/Globulin Ratio 1.2 (1.0-2.8) ECG Data Attestation: I personally reviewed and interpreted this ECG as follows: Interpretation: Normal sinus rhythm with rate of 100, no obvious ST segment elevation or depression changes. Significant movement artifact however limits the study. HI 142, QRS 88, QTC 469. MDM Narrative Medical decision making narrative: 64-year-old male recently left 2 days ago eloped from this ER after initial treatment with IV Solu-Medrol and IV Lasix and breathing treatment Atrovent. History of CHF, history of COPD, cardiomyopathy, before he eloped there was phone consultation documentation on that visit 2 days ago with Cardiology at [facility], apparently patient had May 2024 echocardiogram showing ejection fraction 16-17%. Recommendation at that time for was for admission here for further titration of treatment of his CHF in a monitored setting, though he apparently eloped from the department. Now with a few hours duration of shortness of breath. EKG without obvious ischemic changes. Troponin upper indeterminate range, on repeat slightly decreased, lower range than previous visit when it was actually slightly positive. IV Solu-Medrol 125 mg given, IV Lasix 40 mg given, breathing treatment nebulized Atrovent given. Patient on his usual 2 L oxygen. He felt improved, advised admission as per cardiology recommendation documented 2 days ago, he refused, left the department against medical advice. Stated that he has an appointment with a lung specialist this Monday upcoming. Advised to follow up with that appointment. Return precautions discussed. Left the department against medical advice Discharge Plan Departure Patient Disposition: Left Against Medical Advice Clinical Impression: Left against medical advice Activity Restrictions/Additional Instructions: You did not want admission or further evaluation, and left the emergency department against medical advice. You were eloped from the emergency department 2 days ago after IV medications for heart and lung problems, and breathing treatment. You are advised at that time per cardiology phone consultation to be admitted for further titration of treatment for your cardiomyopathy and congestive heart failure. You eloped from that visit. You are again advised to be admitted for further titration of your chronic heart and lung problems. You again are refusing, against medical advice. You stated that you will be following up with your lung doctor in 2 days Monday. Follow up with that appointment. Return to this/nearest emergency department for any change worsening symptoms or any concerns prior. Referrals: Naif Lynne,See [Primary Care Provider] - Stand Alone Forms: Patient Portal/API, Against Med. Advice (Qatari)
[2024-07-06 22:17] LABS: Troponin I 0.085 ng/mL (0.01-0.034)
[2024-07-06] MEDS: FUROSEMIDE 40 MG/4 ML VIAL IV (22:26)
== END 2024-07-06 23:30 | disposition left against medical advice (07) ==
PROVIDERS: Emergency Provider Emergency Medicine; PCP Anesthesiology Pediatric Anesthesiology
DX: R06.02 Shortness of breath (principal)
CPT/HCPCS: 36415; 71045; 80053; 83605; 83880; 84484; 85025; 85610; 93005; 93010; 94640; 96374; 96375; 99285; J1938; J2919

== ENCOUNTER 2024-07-08 19:35 | Emergency (ER) | payer MEDICARE, MEDICAID, SELFPAY ==
[2024-07-08 19:38] VITALS: BMI 30.4
[2024-07-08 19:42] VITALS: BP 128/76; PULSE 100; RESP 26; TEMP 36.7; O2SAT 93
--- NOTE | 2024-07-08 19:45 | DI.RAD.S_ITS ---
PROCEDURE: XR CHEST 1V INDICATIONS: Shortness of breath TECHNIQUE: One view of the chest was acquired. COMPARISON: [facility], CR, XR CHEST 1V, 06/29/2024, 18:06. Outside Facility, CR, XR CHEST 1V, 04/20/2024, 22:51. Outside Facility, CT, CT ANGIO CHEST PE PROTOCOL, 04/17/2024, 16:32. [facility], CR, XR CHEST 1V, 07/06/2024, 20:06. [facility], CR, XR CHEST 1V, 07/04/2024, 18:02. FINDINGS: Surgical changes and devices: None. Lungs and pleura: Small right pleural effusion. Minimal opacity at the right lung base. Prominent interstitial markings. Emphysematous change seen on prior CT. Mediastinum: Mediastinal contours appear unchanged. Heart size is enlarged. Bones and chest wall: No suspicious bony lesions. Overlying soft tissues appear unremarkable. IMPRESSION: Small right pleural effusion. Minimal opacity at the right lung base. This could represent resolving pneumonia. Cardiomegaly. Dictated by: Joshua Whatley M.D. on 07/08/2024 at 20:33 Approved by: Joshua Whatley M.D. on 07/08/2024 at 20:36
--- NOTE | 2024-07-08 19:47 | EKG_ITS ---
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
[2024-07-08 20:35] LABS: Add Manual Diff / Slide Review NO; Basophils Absolute Auto 100 /uL (0-100); Basophils Percent Auto 1.4 % (0-2); Eosinophils Absolute Auto 300 /uL (0-450); Hematocrit 36.1 % (41-53); Hemoglobin 11.9 g/dL (13.5-17.5); Lymphocytes Absolute Auto 2300 /uL (1100-4500); Lymphocytes Percent Auto 21.8 % (25-40); Mean Corpuscular HGB Conc 32.9 % (30-36); Mean Corpuscular Volume 88.2 fL (80-100); Monocytes Absolute Auto 1300 /uL (0-900); Monocytes Percent Auto 12.2 % (3-14); Neutrophils Absolute Auto 6500 /uL (1500-7000); Neutrophils Percent Auto 61.6 % (50-75); Platelet Count 149 X10^3/uL (150-400); Red Blood Cell Count 4.09 X10^6/uL (4.5-5.9); Red Cell Distribution Width 17.2 % (11.6-14.8); White Blood Cell Count 10.6 X10^3/uL (4.5-11.0)
[2024-07-08 20:43] LABS: Lactate (Lactic Acid) 1.2 mmol/L (0.7-2.1)
[2024-07-08 20:45] LABS: Alanine Aminotransferase 24 IU/L (<50); Albumin 4.2 g/dL (3.5-5.0); Albumin Globulin Ratio 1.3 (1.0-2.8); Alkaline Phosphatase 46 U/L (38-126); Aspartate Aminotransferase 41 IU/L (17-59); BUN Creatinine Ratio 26.2 (6-22); Bilirubin Total 0.8 mg/dL (0.2-1.3); Blood Urea Nitrogen 33 mg/dL (9-20); Calcium 8.6 mg/dL (8.4-10.2); Carbon Dioxide 27 mmol/L (22-32); Chloride 103 mmol/L (98-107); Estimated Glomerular Filt Rate > 60 mL/min (>60); Globulin 3.3 g/dL (1.7-4.1); Glucose 112 mg/dL (70-99); Potassium 4.7 mmol/L (3.4-5.1); Sodium 138 mmol/L (137-145); Total Protein 7.5 g/dL (6.3-8.2)
[2024-07-08 20:47] LABS: HEMOLYSIS 78 (0-50)
[2024-07-08] MEDS: ALBUTEROL 2.5 MG/3 ML NEB (ADULT) INH (20:47)
[2024-07-08 20:50] VITALS: PULSE 96; RESP 20; O2SAT 98
[2024-07-08 20:54] LABS: INR 1.5 (0.9-1.3); Prothrombin Time 16.3 SECONDS (9.4-12.5)
[2024-07-08 20:56] LABS: NT-proBNP (BNP-Adult 18+) 8200 pg/mL (<125); Troponin I 0.061 ng/mL (0.01-0.034)
--- NOTE | 2024-07-08 22:19 | PC.NURSE ---
Pt continuously sitting in stretcher yelling This is the worst hospital in the world! Come on, this is bull shit! What the fuck is going on? Pt updated and redirected multiple time,. requests made for pt to lower voice and not use profanity. Pt continues. Pt now states I'm ready to leave! Confirmed with patient he wanted IV removed and to be detached from monitors. Yes, I wanna get the fuck out of here! Pt states need a taxi. Taxi called for pt.
== END 2024-07-08 22:25 | disposition left against medical advice (07) ==
PROVIDERS: Emergency Provider Emergency Medicine; PCP Anesthesiology Pediatric Anesthesiology
DX: R06.02 Shortness of breath (principal); I50.22 Chronic systolic (congestive) heart failure; J43.2 Centrilobular emphysema; F17.210 Nicotine dependence, cigarettes, uncomplicated
CPT/HCPCS: 36415; 71045; 80053; 83605; 83880; 84484; 85025; 85610; 93005; 94640; 99214; 99284; J7613

== ENCOUNTER 2024-07-10 10:09 | Emergency (ER) | payer MEDICARE, MEDICAID, SELFPAY ==
[2024-07-10] VITALS (14 sets, daily range): BP systolic 110–130; BP diastolic 57–76; PULSE 94–100; RESP 19–35; TEMP 36.5; O2SAT 91–99; BMI 33.1
--- NOTE | 2024-07-10 10:15 | ED_ITS ---
HPI - SOB/Dyspnea General Chief Complaint: Shortness of Breath/Dyspnea Stated Complaint: COPD SOB home O2 Time Seen by Provider: 07/10/24 10:12 History of Present Illness HPI Narrative: Patient [facility] in by ambulance [facility]. Patient there for cardiac rehab. Medical Assistant is in [place]. Patient continues to smoke. Has had multiple visits in the past 2 weeks here for COPD/CHF exacerbation. Patient is on 2 L nasal cannula at home continuously. EMS states he was labored breathing wheezing and very dyspneic on arrival on 2 L working hard with saturation 91%. Patient denies any chest pain.. Patient states he has not had any improvement with leg swelling. He did leave twice against medical advice in the past week. He was seen here June 29 July 04 and July 06. He does agree for admission here today. Related Data Home Medications Medication Instructions Recorded Confirmed albuterol sulfate 90 mcg/actuation See Rx Instructions .Route .COMPLEX 07/13/24 07/13/24 aerosol inhaler apixaban 5 mg tablet (Eliquis) 5 mg PO BID 07/13/24 07/13/24 empagliflozin 10 mg tablet 10 mg PO DAILY 07/13/24 07/13/24 (Jardiance) fluticasone propionate 115 2 puff inhalation BID 07/13/24 07/13/24 mcg-salmeterol 21 mcg/actuation HFA inhaler (Advair HFA) lisinopril 2.5 mg tablet 2.5 mg PO DAILY 07/13/24 07/13/24 metoprolol succinate 25 mg 25 mg PO DAILY 07/13/24 07/13/24 tablet,extended release 24 hr mirtazapine 30 mg tablet 30 mg PO ONCE PM 07/13/24 07/13/24 spironolactone 25 mg tablet 12.5 mg PO DAILY 07/13/24 07/13/24 umeclidinium 62.5 mcg/actuation 1 inh inhalation DAILY 07/13/24 07/13/24 blister powder for inhalation (Incruse Ellipta) Previous Rx's Medication Instructions Recorded furosemide 40 mg tablet (Lasix) 40 mg PO BID #60 tabs 07/10/24 Allergies Allergy/AdvReac Type Severity Reaction Status Date / Time codeine Allergy Severe Difficulty Verified 07/13/24 00:09 Breathing Review of Systems Review of Systems Narrative: GENERAL: Negative chills, fatigue, malaise, fever, sweats. HEENT: Negative sinus pain, ear pain, sore throat RESPIRATORY: Positive dyspnea, cough CARDIOVASCULAR: Negative chest pain, palpitations, positive peripheral edema GASTROINTESTINAL: Negative vomiting, nausea, abdominal pain : Negative dysuria, frequency, hematuria MUSCULOSKELETAL: Negative muscle or bony pain SKIN: Negative rash, skin lesions NEUROLOGIC: Negative weakness, numbness ROS Unobtainable: All systems reviewed & are unremarkable except as noted in HPI and below Patient History Medical History Centrilobular emphysema Cigarette nicotine dependence Congestive heart failure Tobacco use Hypertension Diabetes History of pulmonary embolism COPD (chronic obstructive pulmonary disease) Systolic heart failure Social History household members: none Smoking Status: Current every day smoker tobacco type: cigarettes Exam Narrative Exam Narrative: GENERAL: in no distress, not toxic not dyspneic HEAD: Normocephalic. EYES: Pupils equal round ENT: Mucous membranes moist. NECK: Trachea midline. CARDIOVASCULAR: Regular rate and rhythm RESPIRATORY: Coarse bilateral lung sounds with rales and mild wheezing. Patient speaking short sentences. GASTROINTESTINAL: Abdomen soft, non-tender EXTREMITIES: No gross deformities. 4+ bilateral ankle foot and leg edema. BACK: No flank tenderness. NEURO: AOx4. Clear speech SKIN: Warm and dry PSYCH: Not anxious, is cooperative Initial Vital Signs Initial Vital Signs: Vital Signs Pulse Rate 97 H 07/10/24 10:13 Respiratory Rate 30 H 07/10/24 10:13 Pulse Oximetry 97 07/10/24 10:13 Course Orders Ordered: Discontinued Medications Albuterol (Albuterol 2.5 Mg/3 Ml Neb (Adult)) 2.5 mg INH [id number] PRN PRN Reason: Shortness Of Breath Albuterol/Ipratropium (Albuterol/Ipratropium 3 Ml Ampul) 6 ml INH NOW ONE Stop: 07/10/24 10:15 Last Admin: 07/10/24 10:21 Dose: 6 ml Documented By: BISI Furosemide 60 mg/ Sodium (Chloride) 56 mls @ 112 mls/hr IV NOW ONE Stop: 07/10/24 10:20 Last Infusion: 07/10/24 11:16 Dose: Infused Documented By: Admin: 07/10/24 10:27 Dose: 112 mls/hr Documented By: BISI Methylprednisolone (Methylprednisolone 125 Mg/2 Ml Vial) 125 mg IV NOW ONE Stop: 07/10/24 10:15 Last Admin: 07/10/24 10:21 Dose: 125 mg Documented By: BISI Vital Signs Vital signs: Vital Signs - 8 hr 07/10/24 10:13 07/10/24 10:14 07/10/24 10:14 Temperature 97.7 F Pulse Rate 97 H 97 H 97 H Respiratory Rate 30 H 31 H 30 H Blood Pressure 118/70 Pulse Oximetry 97 97 97 Oxygen Delivery Method Room Air Oxygen Flow Rate 07/10/24 10:14 07/10/24 10:30 07/10/24 10:41 Temperature Pulse Rate 96 H 94 H Respiratory Rate 32 H 23 Blood Pressure 118/70 Pulse Oximetry 98 98 Oxygen Delivery Method Oxygen Flow Rate 07/10/24 10:41 07/10/24 10:50 07/10/24 11:00 Temperature Pulse Rate 99 H 97 H Respiratory Rate 24 22 Blood Pressure 116/73 Pulse Oximetry 95 98 Oxygen Delivery Method Simple Mask Oxygen Flow Rate 6 07/10/24 11:00 07/10/24 11:30 07/10/24 11:31 Temperature Pulse Rate 100 H 98 H Respiratory Rate 23 21 Blood Pressure 119/74 Pulse Oximetry 97 97 Oxygen Delivery Method Aerosol Mask Oxygen Flow Rate 07/10/24 11:31 07/10/24 12:00 07/10/24 12:00 Temperature Pulse Rate 98 H Respiratory Rate 19 Blood Pressure 130/76 121/57 L Pulse Oximetry 99 Oxygen Delivery Method Oxygen Flow Rate 07/10/24 12:30 07/10/24 12:30 07/10/24 13:00 Temperature Pulse Rate 97 H Respiratory Rate 20 Blood Pressure 110/63 111/64 Pulse Oximetry 93 Oxygen Delivery Method Nasal Cannula Oxygen Flow Rate 3 07/10/24 13:00 07/10/24 13:30 07/10/24 13:30 Temperature Pulse Rate 96 H 97 H Respiratory Rate 21 24 Blood Pressure 113/61 Pulse Oximetry 91 91 Oxygen Delivery Method Nasal Cannula Oxygen Flow Rate 2 07/10/24 14:00 07/10/24 14:00 07/10/24 14:30 Temperature Pulse Rate 97 H 99 H Respiratory Rate 19 35 H Blood Pressure 115/58 L Pulse Oximetry 92 91 Oxygen Delivery Method Oxygen Flow Rate 2 07/10/24 14:30 Temperature Pulse Rate Respiratory Rate Blood Pressure 112/67 Pulse Oximetry Oxygen Delivery Method Oxygen Flow Rate MDM - SOB/Dyspnea Lab Data 07/10/24 10:30 07/10/24 10:30 Labs: Lab Results 07/10/24 07/10/24 07/10/24 Range/Units 10:30 10:40 12:40 WBC 8.9 (4.5-11.0) X10^3/uL RBC 4.08 L (4.5-5.9) X10^6/uL Hgb 11.8 L (13.5-17.5) g/dL Hct 35.9 L (41-53) % MCV 88.2 (80-100) fL MCH 28.9 (26-34) PG MCHC 32.8 (30-36) % RDW 16.6 H (11.6-14.8) % Plt Count 144 L (150-400) X10^3/uL Neut % (Auto) 64.7 (50-75) % Lymph % (Auto) 18.7 L (25-40) % Christian % (Auto) 11.7 (3-14) % Eos % (Auto) 3.7 (2-4) % Baso % (Auto) 1.2 (0-2) % Neut # (Auto) 5700 (8650-1389) /uL Lymph # (Auto) 1700 (4034-3518) /uL Christian # (Auto) 1000 H (0-900) /uL Eos # (Auto) 300 (0-450) /uL Baso # (Auto) 100 (0-100) /uL PT 16.0 H (9.4-12.5) SECONDS INR 1.4 H (0.9-1.3) APTT 31 (25.1-36.5) SECONDS VBG pH 7.39 (7.33-7.43) VBG pCO2 49.3 (45-50) mmHg VBG pO2 97 H (35-45) mmHg VBG HCO3 30 H (24-28) mmol/L VBG Total CO2 29 (24-29) mmol/L VBG O2 Saturation 97 H (70-75) % VBG Base Excess 3.6 (0-4) mmol/L Sodium 139 (137-145) mmol/L Potassium 4.0 (3.4-5.1) mmol/L Chloride 103 (98-107) mmol/L Carbon Dioxide 28 (22-32) mmol/L BUN 25 H (9-20) mg/dL Creatinine 1.26 H (0.66-1.25) mg/dL Estimated GFR > 60 (>60) mL/min BUN/Creatinine Ratio 19.8 (6-22) Glucose 125 H (70-99) mg/dL Calcium 8.6 (8.4-10.2) mg/dL Total Bilirubin 0.9 (0.2-1.3) mg/dL AST 33 (17-59) IU/L ALT 25 (<50) IU/L Alkaline Phosphatase 60 (38-126) U/L Total Creatine Kinase 154 152 (55-170) U/L Troponin I 0.045 H 0.043 H (0.01-0.034) ng/mL NT-Pro-B Natriuret Pep 7120 H (<125) pg/mL Total Protein 7.5 (6.3-8.2) g/dL Albumin 4.1 (3.5-5.0) g/dL Globulin 3.4 (1.7-4.1) g/dL Albumin/Globulin Ratio 1.2 (1.0-2.8) Imaging Data Chest x-ray: Radiologist's Impression: [address] [address] XRay Report Signed Patient: Justin Peña MR#: [id number] : 1960 Acct:[id number] Age/Sex: 64 / M Date of Service: 07/10/24 Loc: ED Accession Number: [id number] Procedure: XR chest 1V Ordering Provider: Tyree Mcmanus MD PROCEDURE: XR CHEST 1V INDICATIONS: chest pain TECHNIQUE: One view of the chest was acquired. COMPARISON: [facility], CR, XR CHEST 1V, 07/04/2024, 18:02. [facility], CR, XR CHEST 1V, 07/08/2024, 19:46. FINDINGS: Surgical changes and devices: None. Lungs and pleura: Unchanged small right pleural effusion with right basilar atelectasis. Diffuse interstitial change, as before. No pleural effusions or pneumothorax. Mediastinum: Mediastinal contours appear normal. Heart size is enlarged. Bones and chest wall: No suspicious bony lesions. Overlying soft tissues appear unremarkable. IMPRESSION: Stable findings. Dictated by: Will Fong M.D. on 07/10/2024 at 11:08 Approved by: Will Fong M.D. on 07/10/2024 at 11:15 [facility] Narrative Medical decision making narrative: e continuously. EMS states he was labored breathing wheezing and very dyspneic on arrival on 2 L working hard with saturation 91%. Patient denies any chest pain.. Patient states he has not had any improvement with leg swelling. He did leave twice against medical advice in the past week. He was seen here June 29 July 04 and July 06. He does agree for admission here today. After history and exam, CBC CMP EKG BNP troponin chest x-ray Lasix Solu-Medrol DuoNeb, may need BiPAP if not improving., VBG [facility] Medical records reviewed: Visit here July 04 and July 06 Differential considered: Includes but not limited to CHF COPD STEMI non-STEMI noncompliance Lab Test results independently reviewed as above. Pertinent findings: WBC 8.9 hemoglobin 11.8 VBG 7.39, 49.3, 97, O2 saturation 97, sodium 139 potassium 4.0 BUN 25 creatinine 1.26 GFR greater than 60 Independently reviewed EKG normal sinus rhythm rate 94 Imaging studies independently reviewed: Chest x-ray stable findings Consultations: 12:30 p.m.. I did speak with Cardiology on-call, Dr. Stephen Barber, troponin likely related to cardiac demand from respiratory status. No heparin indicated this time no transfer indicated this time. Reviewed his troponins since June 29. They have trended down . Patient has no chest pain. Patient does not need be transferred. Can be admitted here for CHF and COPD 1:[address] Lazcano, internal medicine hospitalist, who will see patient here in the department for admission criteria 2:[address] Lazcano at bedside with patient. Has evaluated patient and as instructed for patient to be discharged home do double his dose of Lasix/furosemide. He has reviewed patient's chart and it was not done last visit here when patient left Against Medical Advice. Dr. Lazcano states that patient wants to be discharged home and not be admitted Re-evaluations: Patient agrees for admission this time. He will not go Against Medical Advice he states. 2:39 p.m.. Patient now desires discharge home. He has seen hospitalist here. Patient is back at baseline 2 L nasal cannula. Patient had 2200 mL of urine out. Discussion: Patient being discharged home. Hospitalist, Dr. Lazcano has seen patient at bedside and evaluated patient and reviewed patient's records lab results and instructed for patient to be discharged home. My call to him was for request for admission. Diagnosis: CHF exacerbation COPD exacerbation 4:21 p.m.. [facility] asked us to send prescription of Lasix 40 mg twice a day to [facility] [place], I did send it Critical Care Time Critical Care Time Attestation: Critical Care Time 35 minutes: Critical care time is separate from other billable procedures. This critical care time includes consultation with family and other consulting doctors, review of records, and interpretation of data from labs, EKGs, imaging, etc. Discharge Plan Departure Patient Disposition: Home Clinical Impression: Acute exacerbation of chronic obstructive airways disease Acute exacerbation of CHF (congestive heart failure) Qualifiers: Heart failure type: unspecified Qualified Code(s): I50.9 - Heart failure, unspecified Instructions: DI for Heart Failure, DI for Chronic Obstructive Pulmonary Disease Activity Restrictions/Additional Instructions: Please stop smoking. They hospitalist here would like he had to double the dose of your furosemide/Lasix at home. Return if worse if any questions or concerns. You were treated for your COPD and CHF here today. 2 L of urine was obtained through giving your Lasix here. I am glad you are feeling better. Prescriptions: New furosemide [Lasix] 40 mg tablet 40 mg PO BID Qty: 60 0RF No Action Eliquis 5 mg tablet 5 mg PO BID fluticasone propion-salmeterol [Advair HFA] 115-21 mcg/actuation HFA aerosol inhaler 2 puff inhalation BID mirtazapine 30 mg tablet 30 mg PO ONCE PM spironolactone 25 mg tablet 12.5 mg PO DAILY metoprolol succinate 25 mg tablet extended release 24 hr 25 mg PO DAILY lisinopril 2.5 mg tablet 2.5 mg PO DAILY Jardiance 10 mg tablet 10 mg PO DAILY albuterol sulfate 90 mcg/actuation HFA aerosol inhaler See Rx Instructions .ROUTE .COMPLEX Rx Instructions: 90-80MCG/ACT. 2 puff q4hrs as needed Incruse Ellipta 62.5 mcg/actuation blister with device 1 inh inhalation DAILY Referrals: Naif Lynne,See [Primary Care Provider] - Stand Alone Forms: Patient Portal/API/Survey
[2024-07-10] MEDS: methylPREDNISolone 125 MG/2 ML VIAL IV (10:21)
[2024-07-10] MEDS: ALBUTEROL/IPRATROPIUM 3 ML AMPUL 6 ML INH (10:21)
--- NOTE | 2024-07-10 10:22 | EKG_ITS ---
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
[2024-07-10] MEDS: FUROSEMIDE 60 MG in SODIUM CHLORIDE 0.9% 50 ML 112 MG IV (10:27)
[2024-07-10 10:39] LABS: Add Manual Diff / Slide Review NO; Basophils Absolute Auto 100 /uL (0-100); Basophils Percent Auto 1.2 % (0-2); Eosinophils Absolute Auto 300 /uL (0-450); Eosinophils Percent Auto 3.7 % (2-4); Hematocrit 35.9 % (41-53); Hemoglobin 11.8 g/dL (13.5-17.5); Lymphocytes Absolute Auto 1700 /uL (1100-4500); Lymphocytes Percent Auto 18.7 % (25-40); Mean Corpuscular HGB Conc 32.8 % (30-36); Mean Corpuscular Hemoglobin 28.9 PG (26-34); Mean Corpuscular Volume 88.2 fL (80-100); Monocytes Absolute Auto 1000 /uL (0-900); Monocytes Percent Auto 11.7 % (3-14); Neutrophils Absolute Auto 5700 /uL (1500-7000); Neutrophils Percent Auto 64.7 % (50-75); Platelet Count 144 X10^3/uL (150-400); Red Blood Cell Count 4.08 X10^6/uL (4.5-5.9); Red Cell Distribution Width 16.6 % (11.6-14.8); White Blood Cell Count 8.9 X10^3/uL (4.5-11.0)
[2024-07-10 10:44] LABS: Base Excess VBG 3.6 mmol/L (0-4); HCO3 VBG 30 mmol/L (24-28); Oxygen Saturation VBG 97 % (70-75); PCO2 VBG 49.3 mmHg (45-50); PO2 VBG 97 mmHg (35-45); Total CO2 VBG 29 mmol/L (24-29); pH VBG 7.39 (7.33-7.43)
[2024-07-10 10:50] LABS: Alanine Aminotransferase 25 IU/L (<50); Albumin 4.1 g/dL (3.5-5.0); Albumin Globulin Ratio 1.2 (1.0-2.8); Alkaline Phosphatase 60 U/L (38-126); Aspartate Aminotransferase 33 IU/L (17-59); BUN Creatinine Ratio 19.8 (6-22); Bilirubin Total 0.9 mg/dL (0.2-1.3); Blood Urea Nitrogen 25 mg/dL (9-20); Calcium 8.6 mg/dL (8.4-10.2); Carbon Dioxide 28 mmol/L (22-32); Chloride 103 mmol/L (98-107); Creatine Kinase 154 U/L (55-170); Estimated Glomerular Filt Rate > 60 mL/min (>60); Globulin 3.4 g/dL (1.7-4.1); Glucose 125 mg/dL (70-99); HEMOLYSIS < 15 (0-50); Sodium 139 mmol/L (137-145); Total Protein 7.5 g/dL (6.3-8.2)
[2024-07-10 10:54] LABS: INR 1.4 (0.9-1.3)
[2024-07-10 10:57] LABS: PTT Partial Thromboplastin Tim 31 SECONDS (25.1-36.5)
--- NOTE | 2024-07-10 10:58 | PC.NURSE ---
Lives at [facility]. h/o COPD, having SOB since this morning. Uses 2L home O2. Continues to smoke. h/o bipap use. PCP/Cardio at [facility]. 90% on EMS transfer and labored with accessory muscle use. Appears edematous in all limbs, face with periorbital edema. anterior lungs with insp/regan wheezes. appears in NSR at this time. Continuous neb at this time using O2. Poor/scarred vasculature and multiple attempts with IV access. 20G PIV in R wrist. condom cath in place. urine obtained and sent. Transfer of care report given to AKSHAT Pryor.
[2024-07-10 10:59] LABS: NT-proBNP (BNP-Adult 18+) 7120 pg/mL (<125)
[2024-07-10 11:02] LABS: Troponin I 0.045 ng/mL (0.01-0.034)
[2024-07-10 13:15] LABS: Creatine Kinase 152 U/L (55-170)
[2024-07-10 13:27] LABS: Troponin I 0.043 ng/mL (0.01-0.034)
--- NOTE | 2024-07-10 14:40 | P.CONS_ITS ---
History of Present Illness Consult details Date Patient Seen: 07/10/24 Time Patient Seen: 14:40 Chief complaint: COPD SOB home O2 Reason for consult: CHF exacerbation Requesting provider: Tyree Mcmanus Narrative: This is a 64 year old male with PMH of CHFrEF (16% per outside records), combined ischemic and non-ischemic etiology, methamphetamine use, COPD who presents today with shortness of breath. He has been seen multiple times in the ER over the past few days. He was recently at [facility] for CHF exacerbation and discharged to [facility] living. From previous ER visits he was supposed to increase furosemide dosing but this had not happened yet. He reports trouble breathing starting early this morning. In the ER he was mildly tachypnic, short of breath. Initially on 4L O2 but improved to 2L after first dose of IV lasix. Patient reported he felt much improved. CXR showed chronic R pleural effusion, which is known. We discussed observation vs discharge home and patient elected for discharge home. Home meds: Apixaban Advair, Incruse mirtazapine aldactone 25 furosemide 40 mg daily albuterol Jardiance Lisinopril 2.5 Metoprolol 25 Meds Home Medications and Allergies Allergies Allergy/AdvReac Type Severity Reaction Status Date / Time codeine Allergy Verified 06/29/24 17:50 Review of Systems Review of Systems Narrative: All other systems reviewed with the patient and are negative unless otherwise stated. Exam Vital Signs (past 8 hours): - 07/10/24 10:13 07/10/24 10:14 07/10/24 10:14 Temperature 97.7 F Pulse Rate 97 H 97 H 97 H Respiratory Rate 30 H 31 H 30 H Blood Pressure 118/70 Pulse Oximetry 97 97 97 Oxygen Delivery Method Room Air Oxygen Flow Rate 07/10/24 10:14 07/10/24 10:30 07/10/24 10:41 Temperature Pulse Rate 96 H 94 H Respiratory Rate 32 H 23 Blood Pressure 118/70 Pulse Oximetry 98 98 Oxygen Delivery Method Oxygen Flow Rate 07/10/24 10:41 07/10/24 10:50 07/10/24 11:00 Temperature Pulse Rate 99 H 97 H Respiratory Rate 24 22 Blood Pressure 116/73 Pulse Oximetry 95 98 Oxygen Delivery Method Simple Mask Oxygen Flow Rate 6 07/10/24 11:00 07/10/24 11:30 07/10/24 11:31 Temperature Pulse Rate 100 H 98 H Respiratory Rate 23 21 Blood Pressure 119/74 Pulse Oximetry 97 97 Oxygen Delivery Method Aerosol Mask Oxygen Flow Rate 07/10/24 11:31 07/10/24 12:00 07/10/24 12:00 Temperature Pulse Rate 98 H Respiratory Rate 19 Blood Pressure 130/76 121/57 L Pulse Oximetry 99 Oxygen Delivery Method Oxygen Flow Rate 07/10/24 12:30 07/10/24 12:30 Temperature Pulse Rate 97 H Respiratory Rate 20 Blood Pressure 110/63 Pulse Oximetry 93 Oxygen Delivery Method Nasal Cannula Oxygen Flow Rate 3 Oxygen Delivery Method Nasal Cannula Oxygen Flow Rate 3 Narrative Exam Narrative: General:? Patient is well developed and well nourished, in no distress at this time. HEENT:? Normocephalic, atraumatic, extraocular muscles intact, oral pharynx is clear and mucous membranes are moist. Neck: supple and symmetric, trachea is midline, no cervical adenopathy. Negative for JVD Chest:? Normal AP diameter and contour without kyphoscoliosis, no tachypnea, equal chest rise bilaterally. Lungs:? Faint inspiratory wheeze L > R, decreased breath sounds RLL Cardio:?RRR no m/r/g. Abdomen: S NT ND. Musculoskeletal:? Muscle strength and tone are equal within normal limits, no deformity. Extremities: Trace b/l LE edema Skin:? Pale,? Warm to touch,dry and intact without rashes, ulcerations or petechiae.? Neuro:? Alert and orientated x3,? sensation to touch intact in all extremities, no gross deficits noted of cranial nerves. Psych:? Patient has a well-kept appearance, appropriate affect, mental status attitude thought context and judgment are appropriate for age. Objective ECG Impression: NSR, no evidence of acute ischemia as interpreted by me. Imaging Chest x-ray: My impression: Small R pleural effusion, mild vascular prominence. Labs 07/10/24 10:30 07/10/24 10:30 Labs: Laboratory Results - last 24 hr 07/10/24 07/10/24 07/10/24 10:30 10:40 12:40 WBC 8.9 RBC 4.08 L Hgb 11.8 L Hct 35.9 L MCV 88.2 MCH 28.9 MCHC 32.8 RDW 16.6 H Plt Count 144 L Neut % (Auto) 64.7 Lymph % (Auto) 18.7 L [place] % (Auto) 11.7 Eos % (Auto) 3.7 Baso % (Auto) 1.2 Neut # (Auto) 5700 Lymph # (Auto) 1700 [place] # (Auto) 1000 H Eos # (Auto) 300 Baso # (Auto) 100 PT 16.0 H INR 1.4 H APTT 31 VBG pH 7.39 VBG pCO2 49.3 VBG pO2 97 H VBG HCO3 30 H VBG Total CO2 29 VBG O2 Saturation 97 H VBG Base Excess 3.6 Sodium 139 Potassium 4.0 Chloride 103 Carbon Dioxide 28 BUN 25 H Creatinine 1.26 H Estimated GFR > 60 BUN/Creatinine Ratio 19.8 Glucose 125 H Calcium 8.6 Total Bilirubin 0.9 AST 33 ALT 25 Alkaline Phosphatase 60 Total Creatine Kinase 154 152 Troponin I 0.045 H 0.043 H NT-Pro-B Natriuret Pep 7120 H Total Protein 7.5 Albumin 4.1 Globulin 3.4 Albumin/Globulin Ratio 1.2 PFSH Medical History (Updated 07/10/24 @ 13:44 by Tyree Mcmanus MD) Centrilobular emphysema Cigarette nicotine dependence Congestive heart failure Tobacco use Hypertension Diabetes History of pulmonary embolism COPD (chronic obstructive pulmonary disease) Systolic heart failure Tobacco & Substance Use Smoking Status: Current every day smoker Assessment & Plan Assessment & Plan narrative: 1. Acute on chronic systolic heart failure - improved with diuresis in the ER, now improved symptomatically. Troponin mildly elevated but downtrended, EKG non-ischemic. CXR without new significant changes. ProBNP stable from prior ER visits. - recommend increase furosemide to twice daily (this was recommended on a previous ER visit but did not happen at [place]) - outpatient follow up with cardiology - discussed observation vs discharge with patient, patient wished to discharge home. Given improvement to baseline hypoxia and improvement in symptoms, this is reasonable at this time. 2. Acute on chronic respiratory failure with hypoxia, improved 3. COPD without exacerbation - given steroids in ER, but suspect more related to mild volume overload Code: Full, patient declines to elect surrogate decision maker at this time. I have utilized all available immediate resources to obtain, update, or review the patient's current medications. Dispo: Discharge to assisted living facility from the ER. Additional history obtained via discussions with the ER provider. These discussions contributed to the creation of the above assessment and plan. I have reviewed patient's presenting documentation, labs, and imaging personally. Time-Based Coding :: [TOTAL MINUTES] spent with patient and on the chart (including review of chart, obtaining history, exam, reviewing outside data, placing orders, documenting exam and treatment plan, and counseling patient) on [DATE].
== END 2024-07-10 14:57 | disposition home or self-care (01) ==
PROVIDERS: Emergency Provider Emergency Medicine; PCP Anesthesiology Pediatric Anesthesiology
DX: J44.1 Chronic obstructive pulmonary disease with (acute) exacerbation (principal); I11.0 Hypertensive heart disease with heart failure; I50.9 Heart failure, unspecified
CPT/HCPCS: 36415; 71045; 80053; 82550; 82805; 83880; 84484; 85025; 85610; 85730; 93005; 94640; 99285; J1938; J2919

== ENCOUNTER 2024-07-12 19:21 | Inpatient (IN) | payer MEDICARE, MEDICAID, SELFPAY ==
[2024-07-12] VITALS (14 sets, daily range): BP systolic 91–136; BP diastolic 50–85; PULSE 85–107; RESP 21–30; TEMP 36.7; O2SAT 91–98; BMI 31.7
--- NOTE | 2024-07-12 19:23 | EKG_ITS ---
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
--- NOTE | 2024-07-12 19:23 | DI.RAD.S_ITS ---
PROCEDURE: XR CHEST 1V INDICATIONS: Shortness of breath TECHNIQUE: One view of the chest was acquired. COMPARISON: [facility], CR, XR CHEST 1V, 07/10/2024, 10:19. FINDINGS: Surgical changes and devices: None. Lungs and pleura: Increased vascularity. Mild right effusion. Mediastinum: Mediastinal contours appear normal. Heart size is enlarged. Bones and chest wall: No suspicious bony lesions. Overlying soft tissues appear unremarkable. IMPRESSION: Increased vascularity, fusion cardiomegaly suggestive of edema. Dictated by: Neelam Ogden M.D. on 07/12/2024 at 19:58 Approved by: Neelam Ogden M.D. on 07/12/2024 at 19:58
--- NOTE | 2024-07-12 19:40 | ED_ITS ---
HPI - SOB/Dyspnea General Chief Complaint: Shortness of Breath/Dyspnea Stated Complaint: SOB Time Seen by Provider: 07/12/24 19:31 Source: patient and EMS Mode of arrival: EMS History of Present Illness HPI Narrative: 64-year-old male history of COPD and on 2 L chronically CHF pulmonary embolism on Eliquis presents via EMS with cough shortness of breath and wheezing today after going to [facility] using his portable tank but they had no electric scooter so he had to ambulate and this triggered his shortness breath given 1 DuoNeb treatment prior to his arrival here. Denies fever chills body aches headache chest pain but chest does feel tight but little bit better after breathing treatment. Other than what is stated 14 point review of system is negative Related Data Previous Rx's Medication Instructions Recorded furosemide 40 mg tablet (Lasix) 40 mg PO BID #60 tabs 07/10/24 Allergies Allergy/AdvReac Type Severity Reaction Status Date / Time codeine Allergy Verified 06/29/24 17:50 Review of Systems Review of Systems ROS Unobtainable: All systems reviewed & are unremarkable except as noted in HPI and below Patient History Medical History (Updated 07/12/24 @ 23:19 by Roberto Barnes, DO) Centrilobular emphysema Cigarette nicotine dependence Congestive heart failure Tobacco use Hypertension Diabetes History of pulmonary embolism COPD (chronic obstructive pulmonary disease) Systolic heart failure tobacco type: cigarettes Exam Narrative Exam Narrative: GENERAL: [64] year old patient appears stated age. Well-developed patient, in mild distress. HEAD: Atraumatic. Normocephalic. EYES: Pupils equal round and reactive. Extraocular motions intact. No scleral icterus. No injection or drainage. ENT: Nose without bleeding, purulent drainage. Throat without erythema, tonsillar hypertrophy or exudate. Airway patent. NECK: Trachea midline. Non tender CARDIOVASCULAR: Regular rate and rhythm without murmurs, gallops, or rubs. RESPIRATORY: Decrease b/s b/l with faint wheezes throughout GASTROINTESTINAL: Abdomen soft, non-tender, nondistended. EXTREMITIES: No edema or joint tenderness. BACK: Nontender without deformity or crepitance. No flank tenderness. NEURO: AOx3. SKIN: No rash or erythema of visible areas Initial Vital Signs Initial Vital Signs: Vital Signs Temperature 98.0 F 07/12/24 19:23 Pulse Rate 107 H 07/12/24 19:23 Respiratory Rate 30 H 07/12/24 19:23 Blood Pressure 120/65 07/12/24 19:23 Pulse Oximetry 95 07/12/24 19:23 Oxygen Delivery Method Nasal Cannula 07/12/24 19:23 Oxygen Flow Rate 4 07/12/24 19:23 Course Orders Ordered: ED Orders 07/12/24 19:20 Complete Blood Count AUTO DIFF Stat Comprehensive Metabolic Panel Stat Lactate (Lactic Acid) Stat NT-proBNP (BNP-Adult 18+) Stat Prothrombin Time INR Stat Troponin I Stat 07/12/24 19:23 XR chest 1V Stat EKG-12 Lead Stat RT Consult Eval and Treat NOW 07/12/24 21:13 Troponin I Stat Discontinued Medications Albuterol/Ipratropium (Albuterol/Ipratropium 3 Ml Ampul) 3 ml INH NOW ONE Stop: 07/12/24 19:45 Last Admin: 07/12/24 19:51 Dose: 3 ml Documented By: ARIANNA Albuterol/Ipratropium (Albuterol/Ipratropium 3 Ml Ampul) 3 ml INH NOW ONE Stop: 07/12/24 19:45 Last Admin: 07/12/24 19:51 Dose: 3 ml Documented By: ARIANNA Aspirin (Aspirin 81 Mg Chew Tab) 324 mg PO NOW ONE Stop: 07/12/24 20:20 Last Admin: 07/12/24 20:21 Dose: 324 mg Documented By: DRE Furosemide (Furosemide 40 Mg/4 Ml Vial) 40 mg IV NOW ONE Stop: 07/12/24 19:44 Last Admin: 07/12/24 20:02 Dose: 40 mg Documented By: DRE Methylprednisolone (Methylprednisolone 125 Mg/2 Ml Vial) 125 mg IV NOW ONE Stop: 07/12/24 19:44 Last Admin: 07/12/24 20:02 Dose: 125 mg Documented By: DRE Vital Signs Vital signs: Vital Signs - 8 hr 07/12/24 19:23 07/12/24 19:27 07/12/24 19:28 Temperature 98.0 F Pulse Rate 107 H 104 H Respiratory Rate 30 H Blood Pressure 120/65 120/65 Pulse Oximetry 95 96 Oxygen Delivery Method Nasal Cannula Oxygen Flow Rate 4 Fraction of Inspired Oxygen 07/12/24 19:30 07/12/24 19:54 07/12/24 20:00 Temperature Pulse Rate 100 H 101 H 100 H Respiratory Rate 22 Blood Pressure Pulse Oximetry 97 97 93 Oxygen Delivery Method Nasal Cannula Oxygen Flow Rate 3 Fraction of Inspired Oxygen 32 07/12/24 20:30 07/12/24 21:00 07/12/24 21:30 Temperature Pulse Rate 101 H 100 H 93 H Respiratory Rate 21 Blood Pressure Pulse Oximetry 96 93 95 Oxygen Delivery Method Oxygen Flow Rate Fraction of Inspired Oxygen 07/12/24 22:00 Temperature Pulse Rate 95 H Respiratory Rate Blood Pressure Pulse Oximetry 91 Oxygen Delivery Method Oxygen Flow Rate Fraction of Inspired Oxygen MDM - SOB/Dyspnea Lab Data 07/12/24 19:20 07/12/24 19:20 Labs: Lab Results 07/12/24 07/12/24 Range/Units 19:20 21:13 WBC 11.5 H (4.5-11.0) X10^3/uL RBC 4.25 L (4.5-5.9) X10^6/uL Hgb 12.1 L (13.5-17.5) g/dL Hct 37.4 L (41-53) % MCV 88.0 (80-100) fL MCH 28.5 (26-34) PG MCHC 32.3 (30-36) % RDW 17.1 H (11.6-14.8) % Plt Count 141 L (150-400) X10^3/uL Neut % (Auto) 67.7 (50-75) % Lymph % (Auto) 17.3 L (25-40) % [place] % (Auto) 11.4 (3-14) % Eos % (Auto) 2.7 (2-4) % Baso % (Auto) 0.9 (0-2) % Neut # (Auto) 7800 H (0977-1327) /uL Lymph # (Auto) 2000 (7667-2877) /uL [place] # (Auto) 1300 H (0-900) /uL Eos # (Auto) 300 (0-450) /uL Baso # (Auto) 100 (0-100) /uL PT 17.4 H (9.4-12.5) SECONDS INR 1.6 H (0.9-1.3) Sodium 140 (137-145) mmol/L Potassium 3.6 (3.4-5.1) mmol/L Chloride 99 (98-107) mmol/L Carbon Dioxide 33 H (22-32) mmol/L BUN 35 H (9-20) mg/dL Creatinine 1.46 H (0.66-1.25) mg/dL Estimated GFR 53 L (>60) mL/min BUN/Creatinine Ratio 24.0 H (6-22) Glucose 125 H (70-99) mg/dL Lactate 1.1 (0.7-2.1) mmol/L Calcium 8.6 (8.4-10.2) mg/dL Total Bilirubin 0.8 (0.2-1.3) mg/dL AST 34 (17-59) IU/L ALT 25 (<50) IU/L Alkaline Phosphatase 60 (38-126) U/L Troponin I 0.283 H* 0.270 H* (0.01-0.034) ng/mL NT-Pro-B Natriuret Pep 92340 H (<125) pg/mL Total Protein 7.6 (6.3-8.2) g/dL Albumin 4.2 (3.5-5.0) g/dL Globulin 3.4 (1.7-4.1) g/dL Albumin/Globulin Ratio 1.2 (1.0-2.8) ECG Data Interpretation: NSRHR 97 AR 150 QRS [address]-t wave change Unchanged from 07/10/24 MDM Narrative Medical decision making narrative: All lab work vital signs nurse triage note medication list at all imaging studies and all previous ER visits reviewed. Patient given Lasix Solu-Medrol and aspirin here. He has put out close to 1 L. I have spoken to Dr. Mejia Waste Duster who recommended the patient be admitted and transferred to [facility] for cath on Monday. Patient is agreeable to stay this time for inpatient admission as they have 18 pts waiting for admission in the ER. Will admit here and on wait list to be transferred to [facility] for cath on Monday. Case discussed with who has graciously accepted patient for inpatient admission. Differential diagnosis includes COPD CHF STEMI NSTEMI unstable angina cardiomyopathy. Discharge Plan Departure Patient Disposition: Admitted As Inpatient Clinical Impression: Elevated troponin CHF (congestive heart failure) Qualifiers: Heart failure type: systolic Heart failure chronicity: acute on chronic Q ualified Code(s): I50.23 - Acute on chronic systolic (congestive) heart failure Admit Date/Time: 07/12/24 23:12 Admit Provider: Demetrius Figueroa
[2024-07-12 19:43] LABS: Add Manual Diff / Slide Review NO; Basophils Absolute Auto 100 /uL (0-100); Basophils Percent Auto 0.9 % (0-2); Eosinophils Absolute Auto 300 /uL (0-450); Eosinophils Percent Auto 2.7 % (2-4); Hematocrit 37.4 % (41-53); Hemoglobin 12.1 g/dL (13.5-17.5); Lymphocytes Absolute Auto 2000 /uL (1100-4500); Lymphocytes Percent Auto 17.3 % (25-40); Mean Corpuscular HGB Conc 32.3 % (30-36); Mean Corpuscular Hemoglobin 28.5 PG (26-34); Monocytes Absolute Auto 1300 /uL (0-900); Monocytes Percent Auto 11.4 % (3-14); Neutrophils Absolute Auto 7800 /uL (1500-7000); Neutrophils Percent Auto 67.7 % (50-75); Platelet Count 141 X10^3/uL (150-400); Red Blood Cell Count 4.25 X10^6/uL (4.5-5.9); Red Cell Distribution Width 17.1 % (11.6-14.8); White Blood Cell Count 11.5 X10^3/uL (4.5-11.0)
[2024-07-12 19:48] LABS: INR 1.6 (0.9-1.3); Prothrombin Time 17.4 SECONDS (9.4-12.5)
[2024-07-12] MEDS: ALBUTEROL/IPRATROPIUM 3 ML AMPUL INH ×2 (19:51)
[2024-07-12 19:56] LABS: Alanine Aminotransferase 25 IU/L (<50); Albumin 4.2 g/dL (3.5-5.0); Albumin Globulin Ratio 1.2 (1.0-2.8); Alkaline Phosphatase 60 U/L (38-126); Aspartate Aminotransferase 34 IU/L (17-59); Bilirubin Total 0.8 mg/dL (0.2-1.3); Blood Urea Nitrogen 35 mg/dL (9-20); Calcium 8.6 mg/dL (8.4-10.2); Carbon Dioxide 33 mmol/L (22-32); Chloride 99 mmol/L (98-107); Estimated Glomerular Filt Rate 53 mL/min (>60); Globulin 3.4 g/dL (1.7-4.1); Glucose 125 mg/dL (70-99); HEMOLYSIS < 15 (0-50); Potassium 3.6 mmol/L (3.4-5.1); Sodium 140 mmol/L (137-145); Total Protein 7.6 g/dL (6.3-8.2)
[2024-07-12 19:58] LABS: Lactate (Lactic Acid) 1.1 mmol/L (0.7-2.1)
[2024-07-12] MEDS: FUROSEMIDE 40 MG/4 ML VIAL IV (20:02)
[2024-07-12] MEDS: methylPREDNISolone 125 MG/2 ML VIAL IV (20:02)
[2024-07-12 20:10] LABS: Troponin I 0.283 ng/mL (0.01-0.034)
[2024-07-12 20:11] LABS: NT-proBNP (BNP-Adult 18+) 10200 pg/mL (<125)
[2024-07-12] MEDS: ASPIRIN 81 MG CHEW TAB 324 MG PO (20:21)
--- NOTE | 2024-07-12 21:56 | PC.NURSE ---
Pt stated he wanted food because he was Fucking hungry because he missed dinner. He's in his room talking to his self: c'mon man...fucking lying to me...this is bullshit. he was asked what we could do to make him more comfortable. he stated that he wanted food. aware. pt NPO do to unstable lab work and need to detective consult. Will continue to monitor.
--- NOTE | 2024-07-12 23:24 | PM.HP.1 ---
History of Present Illness History of Present Illness Chief complaint: SOB Narrative: 64M with PMH of COPD and chronic hypoxic respiratory failure on 2L oxygen, CHFrEF, PE on Eliquis, HTN presents with 1 day of cough, dyspnea, and wheezing. No fever, chills, chest pain, body aches. Troponin and BNP were higher than baseline. Blood pressure was borderline low. WBC was minimally elevated but with no left shift. Creatinine was mildly elevated from baseline. CXR showed cardiomegaly and increased vascularity c/c edema. He was given Lasix & ASA in ED but also Duonebs and solu-medrol for dyspnea despite lack of acute hypoxia from baseline or wheezing. Doesn't have nebulizer. Was taking Lasix. [facility] Medical History Centrilobular emphysema Cigarette nicotine dependence Congestive heart failure Tobacco use Hypertension Diabetes History of pulmonary embolism COPD (chronic obstructive pulmonary disease) Systolic heart failure Social History Smoking Status: Current every day smoker Meds Home Medications and Allergies Home Medications Medication Instructions Recorded Confirmed Type furosemide 40 mg tablet (Lasix) 40 mg PO BID #60 tabs 07/10/24 07/13/24 Rx albuterol sulfate 90 mcg/actuation See Rx Instructions .Route .COMPLEX 07/13/24 07/13/24 History aerosol inhaler apixaban 5 mg tablet (Eliquis) 5 mg PO BID 07/13/24 07/13/24 History empagliflozin 10 mg tablet 10 mg PO DAILY 07/13/24 07/13/24 History (Jardiance) fluticasone propionate 115 2 puff inhalation BID 07/13/24 07/13/24 History mcg-salmeterol 21 mcg/actuation HFA inhaler (Advair HFA) lisinopril 2.5 mg tablet 2.5 mg PO DAILY 07/13/24 07/13/24 History metoprolol succinate 25 mg 25 mg PO DAILY 07/13/24 07/13/24 History tablet,extended release 24 hr mirtazapine 30 mg tablet 30 mg PO ONCE PM 07/13/24 07/13/24 History spironolactone 25 mg tablet 12.5 mg PO DAILY 07/13/24 07/13/24 History umeclidinium 62.5 mcg/actuation 1 inh inhalation DAILY 07/13/24 07/13/24 History blister powder for inhalation (Incruse Ellipta) Allergies Allergy/AdvReac Type Severity Reaction Status Date / Time codeine Allergy Severe Difficulty Verified 07/13/24 00:09 Breathing Review of Systems Review of Systems Narrative: As per HPI. Rest of 10-system review negative. Exam Vital Signs (past 8 hours): - 07/12/24 19:23 07/12/24 19:27 07/12/24 19:28 Temperature 98.0 F Pulse Rate 107 H 104 H Respiratory Rate 30 H Blood Pressure 120/65 120/65 Pulse Oximetry 95 96 Oxygen Delivery Method Nasal Cannula Oxygen Flow Rate 4 Fraction of Inspired Oxygen 07/12/24 19:30 07/12/24 19:54 07/12/24 20:00 Temperature Pulse Rate 100 H 101 H 100 H Respiratory Rate 22 Blood Pressure Pulse Oximetry 97 97 93 Oxygen Delivery Method Nasal Cannula Oxygen Flow Rate 3 Fraction of Inspired Oxygen 32 07/12/24 20:30 07/12/24 21:00 07/12/24 21:30 Temperature Pulse Rate 101 H 100 H 93 H Respiratory Rate 21 Blood Pressure Pulse Oximetry 96 93 95 Oxygen Delivery Method Oxygen Flow Rate Fraction of Inspired Oxygen 07/12/24 22:00 07/12/24 22:30 07/12/24 22:57 Temperature Pulse Rate 95 H 97 H 100 H Respiratory Rate Blood Pressure Pulse Oximetry 91 94 98 Oxygen Delivery Method Oxygen Flow Rate Fraction of Inspired Oxygen 07/12/24 22:57 07/12/24 23:00 Temperature Pulse Rate 95 H Respiratory Rate Blood Pressure 91/50 L Pulse Oximetry 94 Oxygen Delivery Method Oxygen Flow Rate Fraction of Inspired Oxygen Fraction of Inspired Oxygen 32 SaO2/FiO2 Ratio 303 Oxygen Delivery Method Nasal Cannula Oxygen Flow Rate 3 Narrative Exam Narrative: Patient was evaluated entirely through 2-way audio/video telemedicine with RN assistance in exam. Physician was not present at beside in person at any time for this evaluation. 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 Labs 07/12/24 19:20 07/12/24 19:20 Labs: Laboratory Results - last 24 hr 07/12/24 07/12/24 19:20 21:13 WBC 11.5 H RBC 4.25 L Hgb 12.1 L Hct 37.4 L MCV 88.0 MCH 28.5 MCHC 32.3 RDW 17.1 H Plt Count 141 L Neut % (Auto) 67.7 Lymph % (Auto) 17.3 L [place] % (Auto) 11.4 Eos % (Auto) 2.7 Baso % (Auto) 0.9 Neut # (Auto) 7800 H Lymph # (Auto) 2000 [place] # (Auto) 1300 H Eos # (Auto) 300 Baso # (Auto) 100 PT 17.4 H INR 1.6 H Sodium 140 Potassium 3.6 Chloride 99 Carbon Dioxide 33 H BUN 35 H Creatinine 1.46 H Estimated GFR 53 L BUN/Creatinine Ratio 24.0 H Glucose 125 H Lactate 1.1 Calcium 8.6 Total Bilirubin 0.8 AST 34 ALT 25 Alkaline Phosphatase 60 Troponin I 0.283 H* 0.270 H* NT-Pro-B Natriuret Pep 29737 H Total Protein 7.6 Albumin 4.2 Globulin 3.4 Albumin/Globulin Ratio 1.2 Assessment & Plan Assessment and plan (1) Elevated troponin: Status: Acute (2) Acute exacerbation of CHF (congestive heart failure): Qualifiers: Heart failure type: unspecified Qualified Code(s): I50.9 - Heart failure, unspecified Status: Acute Assessment & Plan narrative: 1. Acute CHFrEF, without acute hypoxic respiratory failure, POA 2. COPD, not in acute exacerbation 3. Chronic hypoxic respiratory failure, 2L, stable 4. HTN, currently borderline hypotensive 5. h/o PE on Eliquis Plan: 1. Admit to inpatient, telemetry 2. Daily weights, strict I/Os 3. Cardiac diet, Fluid restriction to 1.8L 4. Daily BMP, CBC, Mg 5. Serial troponin 6. BNP in AM 7. Cardiology already on board - called by ED 8. Pending transfer for cath Monday (see ED note) 9. IV Lasix 10. ASA daily Code: Full DVT prophylaxis: UFH, SCDs Time-Based Coding :: [TOTAL MINUTES] spent with patient and on the chart (including review of chart, obtaining history, exam, reviewing outside data, placing orders, documenting exam and treatment plan, and counseling patient) on [DATE].
--- NOTE | 2024-07-12 23:55 | PC.NURSE ---
Pt arrived via wheelchair from ER. Aox3, on 4L NC sating 92%. Applied telemetry. VS taken and charted. Pt complains of pain in LLE 08/20. LLE red and swollen (wound photos in chart). Instructed to use call light for any needs. Bed alarm activated.
[2024-07-13] VITALS (13 sets, daily range): BP systolic 88–115; BP diastolic 53–78; PULSE 76–101; RESP 18–24; TEMP 35.9–36.4; O2SAT 92–96
--- NOTE | 2024-07-13 00:40 | PC.WOUNDPHOT ---
R foot LLE redness and swelling.
--- NOTE | 2024-07-13 06:56 | PC.NURSE ---
Did not sleep all shift, up to the recliner most of the night. Lab. unable to draw his blood this morning, pt. states you can only try to poke me once & that's it. Denies any chest pain & other discomfort, Hungry given snacks 3 times. Will monitor & continue plan of care.
[2024-07-13] MEDS: ALBUTEROL 2.5 MG/3 ML NEB (ADULT) INH ×2 (07:45→20:46)
--- NOTE | 2024-07-13 07:45 | P.PN_ITS ---
Subjective Subjective Interval history: Summary (H&P): The patient presented from [facility] with acute dyspnea. He was found to have evidence of reactive airways, with acute respiratory distress and hypoxia. In addition he would elevated troponins. The patient suffers from severe claustrophobia and remains quite agitated at being in the facility this morning. He was intermittently threatening to leave, and cursing. He denies any chest pain. There was, apparently, conversation between the ED physician and Cardiology at [facility] last evening indicated a possible plan of transfer on Monday for coronary catheterization. It was hard to believe that this patient be able to comply with a transfer given his severe claustrophobia or and invasive cardiac procedure. This morning, he received Ativan and Seroquel for agitation and anxiety. Ultimately he was given an IV dose of Haldol. S: He states he was severely anxious and needs to get out of here. He was very claustrophobic and feels that the perez are closing in on him. At his assisted living facility, he can alleviate these feelings by going outside debris with fresh air. Exam Vital Signs (past 8 hours): - 07/13/24 00:00 07/13/24 02:28 07/13/24 04:13 Temperature 97.2 F L 96.7 F L Pulse Rate 99 H 91 H Respiratory Rate 22 24 Blood Pressure 115/68 108/76 Pulse Oximetry 95 95 94 Oxygen Delivery Method Nasal Cannula Oxygen Flow Rate 4 4 4 Fraction of Inspired Oxygen 36 Fraction of Inspired Oxygen 36 SaO2/FiO2 Ratio 263 Oxygen Delivery Method Nasal Cannula Oxygen Flow Rate 4 Narrative Exam Narrative: Intermittently he was extremely anxious and agitated and saying various profanities. Fluent speech. Lungs are notable for wheezing, normal rate and effort. Heart is regular, no murmur gallop or rub. Abdomen is soft, non distended. Extremities are with 1+ edema. Objective ECG Impression: ntervals [place] Rate: 97 P: 64 LA: 150 QRS: -19 QRSD: 94 T: 121 QT: 368 QTc: 467 Interpretive Statements Normal sinus rhythm Nonspecific T wave abnormality Prolonged QT Imaging Chest x-ray: Radiologist's impression: Increased vascularity, fusion cardiomegaly suggestive of edema. Labs 07/12/24 19:20 07/12/24 19:20 Labs: Laboratory Results - last 24 hr 07/12/24 07/12/24 19:20 21:13 WBC 11.5 H RBC 4.25 L Hgb 12.1 L Hct 37.4 L MCV 88.0 MCH 28.5 MCHC 32.3 RDW 17.1 H Plt Count 141 L Neut % (Auto) 67.7 Lymph % (Auto) 17.3 L [place] % (Auto) 11.4 Eos % (Auto) 2.7 Baso % (Auto) 0.9 Neut # (Auto) 7800 H Lymph # (Auto) 2000 [place] # (Auto) 1300 H Eos # (Auto) 300 Baso # (Auto) 100 PT 17.4 H INR 1.6 H Sodium 140 Potassium 3.6 Chloride 99 Carbon Dioxide 33 H BUN 35 H Creatinine 1.46 H Estimated GFR 53 L BUN/Creatinine Ratio 24.0 H Glucose 125 H Lactate 1.1 Calcium 8.6 Total Bilirubin 0.8 AST 34 ALT 25 Alkaline Phosphatase 60 Troponin I 0.283 H* 0.270 H* NT-Pro-B Natriuret Pep 34073 H Total Protein 7.6 Albumin 4.2 Globulin 3.4 Albumin/Globulin Ratio 1.2 PFSH Medical History Centrilobular emphysema Cigarette nicotine dependence Congestive heart failure Tobacco use Hypertension Diabetes History of pulmonary embolism COPD (chronic obstructive pulmonary disease) Systolic heart failure Social History household members: none Smoking Status: Current every day smoker Assessment & Plan Assessment & Plan narrative: 1. Acute CHFrEF, without acute hypoxic respiratory failure, present on admission and active. 2. COPD with possible exacerbation, present on admission and active. 3. Chronic hypoxic respiratory failure, 2L, stable. 4. HTN, currently borderline hypotensive. 5. h/o PE on Eliquis. 6. NSTEMI, present on admission and active. The patient has troponins which are trending up to a plateau of 0.27. He declined a lab draw early this afternoon to further evaluate the trend of his troponin. Plan: 1. Admit to inpatient, telemetry 2. Daily weights, strict I/Os 3. Cardiac diet, Fluid restriction to 1.8L 4. Daily BMP, CBC, Mg 5. Serial troponin 6. IV Lasix 7. ASA daily 8. Bronchodilators. Anticipate a 2 midnight length of stay for this patient, supports inpatient status. He default to full resuscitation. Estimated date of discharge is unclear. Need for transfer to [facility] for further cardiac care is very unclear in that he would likely not be able to tolerate this. Code: Life Skills Specialist-Based Coding :: [TOTAL MINUTES] spent with patient and on the chart (including review of chart, obtaining history, exam, reviewing outside data, placing orders, documenting exam and treatment plan, and counseling patient) on [DATE].
[2024-07-13] MEDS: LORazepam 2 MG/ML INJ 1 MG IV (09:03)
[2024-07-13] MEDS: SODIUM CHLORIDE 0.9% 10 ML INJ (09:12)
[2024-07-13] MEDS: QUETIAPINE 25 MG TABLET PO ×2 (09:16→20:55)
[2024-07-13] MEDS: HALOPERIDOL 5 MG/ML VIAL IV (10:18)
--- NOTE | 2024-07-13 10:21 | CM.DANOTE ---
Patient is a 64 yo male who was admitted INPT Status on 07/12/24 for Acute CHF and increased trops. Pt has [facility] and [facility] for insurance and his PCP is Carlos Valdivai. EMR was reviewed. Per MD, pt with hx of COPD with home 2LO2 at baseline and continues to smoke and admitted for acute CHF, Lasix, and adjusting medications for claustrophobia. Per ED MD, potential for hospital transfer to [facility] for heart cath but Hospitalist determining if this is an option. Per RN and pharmacist, pt given Ativan and home meds to attempt to help with his claustrophobia and pt easily agitated at this time and RN requested SW to meet bedside with pt later when more appropriate. Pt resides at [facility] and his primary contact is his friend Drea Salazar [phone] and pt preference is to return to [facility] at discharge. Pt uses [facility] or [facility] at baseline and ambulates outside of [facility] independently for smoking. Pt remains Full Code on his POLST. SW faxed initial clinicals to [facility] to review for likely plan of discharge back at d/c if pt not transferred for higher level of Cardiac needs. Plan: SW to follow closely for coordination with [facility] and bedside assessment with pt when he is more stable for likely plan of return to [facility] vs hospital transfer for cath pending progress. YAMILETH Bonilla Discharge Planning/Care Management CM Discharge Assessment Start: 07/13/24 10:18 Freq: Status: Active Protocol: Document 07/13/24 10:18 BF (Rec: 07/13/24 10:21 BF [id number]) Discharge Planning Assessment Assigned Angular Developer YAMILETH Foster DPOA/Assigned Designee Name none Advance Directives? No Advance Directives on File No History Provided By Patient,Medical Record Has Patient been admitted in last 30 No days? Comment Few ED visits recently Prior Living Arrangements Assisted Living Comment [facility] Household Members none Type of transporation used prior to Relies on Others admit Facility Name Admitted From: [facility] Willing to Return to Facility? Yes Independent with ADL's No Is patient alert and oriented? Yes: mostly Needs Assistance With Meal Prep,Managing Medications ,Home Chores / Shopping Caregiver for Another No DME Already Rented / Owned [facility] / [facility] Comment Likely return to [facility] at [facility] if no heart cath transfer Barriers to Discharge No Discharge Plan Assisted Living Facility Transportation Arrangement Likely facility van vs Medicaid transport Additional Comment Pending potential hospital transfer for heart cath Whiteboard Updated in Patient Room with Yes name and ext. # of Angular Developer Review Status In Process Please Provide Date Initial DC 07/13/24 Assessment Was Performed Next Review Type Continued Stay Review
[2024-07-13] MEDS: ASPIRIN EC 81 MG TABLET PO (11:00)
[2024-07-13] MEDS: lisinopriL 5 MG TABLET 2.5 MG PO (11:00)
[2024-07-13] MEDS: APIXABAN 5 MG TABLET PO ×2 (11:02→20:55)
[2024-07-13] MEDS: METOPROLOL ER 25 MG TABLET PO (11:02)
[2024-07-13] MEDS: SPIRONOLACTONE 25 MG TABLET 12.5 MG PO (11:02)
[2024-07-13] MEDS: SODIUM CHLORIDE 0.9% FLUSH 10 ML IV ×3 (11:05→20:56)
--- NOTE | 2024-07-13 11:32 | PC.NURSE ---
Addendum entered by Thomas Vazquez R.N. 07/13/24 18:15: Meds given earlier have been of good effect throughout the day . Pt outbursts have been short lived. Original Note: Pt up in chair, initially calm. Started to ramp up requiring IV ativan, Seroquel and then Haldol. Pt is presently back in bed, resting comfortably. Pt complained that he felt the perez closing in and that he had to get out of here. Yelling and swinging at staff. Dr. Hui aware.
[2024-07-13] MEDS: BUDESONIDE 0.5 MG/2 ML NEB INH (20:46)
[2024-07-13] MEDS: MIRTAZAPINE 15 MG TABLET 30 MG PO (20:55)
[2024-07-14 02:07] VITALS: PULSE 88; RESP 18
[2024-07-14] MEDS: ALBUTEROL/IPRATROPIUM 3 ML AMPUL INH ×2 (02:07→06:17)
[2024-07-14 03:30] VITALS: BP 99/60; PULSE 93; RESP 20; TEMP 36.1; O2SAT 96
[2024-07-14 05:58] LABS: Alanine Aminotransferase 25 IU/L (<50); Albumin Globulin Ratio 1.3 (1.0-2.8); Alkaline Phosphatase 56 U/L (38-126); Aspartate Aminotransferase 30 IU/L (17-59); Bilirubin Total 0.9 mg/dL (0.2-1.3); Blood Urea Nitrogen 41 mg/dL (9-20); Calcium 8.6 mg/dL (8.4-10.2); Carbon Dioxide 30 mmol/L (22-32); Chloride 100 mmol/L (98-107); Estimated Glomerular Filt Rate > 60 mL/min (>60); Globulin 3.1 g/dL (1.7-4.1); Glucose 166 mg/dL (70-99); HEMOLYSIS < 15 (0-50); Potassium 4.1 mmol/L (3.4-5.1); Sodium 137 mmol/L (137-145); Total Protein 7.1 g/dL (6.3-8.2)
[2024-07-14 06:15] LABS: Hemoglobin 11.6 g/dL (13.5-17.5); Mean Corpuscular HGB Conc 32.3 % (30-36); Mean Corpuscular Hemoglobin 28.4 PG (26-34); Mean Corpuscular Volume 87.8 fL (80-100); NT-proBNP (BNP-Adult 18+) 5180 pg/mL (<125); Platelet Count 147 X10^3/uL (150-400); White Blood Cell Count 10.1 X10^3/uL (4.5-11.0)
[2024-07-14 06:16] LABS: Add Manual Diff / Slide Review YES
[2024-07-14 06:17] LABS: Troponin I 0.145 ng/mL (0.01-0.034)
[2024-07-14] MEDS: BUDESONIDE 0.5 MG/2 ML NEB INH (06:17)
[2024-07-14 06:19] VITALS: PULSE 96; RESP 20; O2SAT 93
[2024-07-14 07:02] LABS: Neutrophils Absolute Manual 6464 /uL (3000-5900); Total Cells Counted 100
[2024-07-14 07:03] LABS: Anisocytosis 1+
--- NOTE | 2024-07-14 07:21 | PM.PN.1 ---
Subjective Subjective Date Patient Seen: 07/14/24 Interval history: Chief complaint: Severe dyspnea or shortness a breath with signs and symptoms of reactive airway disease, exacerbation of CHF and elevated troponins History of present illness: The patient presented from [facility] with acute dyspnea. He was found to have evidence of reactive airways, with acute respiratory distress and hypoxia. In addition he would elevated troponins vascular congestion on chest x-ray and BNP greater than 10,000 The patient suffers from severe claustrophobia and remains quite agitated at being in the facility this morning. He was intermittently threatening to leave, and cursing. He denies any chest pain. There was, apparently, conversation between the ED physician and Cardiology at [facility] last evening indicated a possible plan of transfer on Monday for coronary catheterization. It was hard to believe that this patient be able to comply with a transfer given his severe claustrophobia or and invasive cardiac procedure. Dr. Mejia Drapery Seamstress who recommended the patient be admitted and transferred to [facility] for cath on Monday. PMH of COPD and chronic hypoxic respiratory failure on 2L oxygen, CHFrEF, PE on Eliquis, HTN Hospital course: 07/13: This morning, he received Ativan and Seroquel for agitation and anxiety. Ultimately he was given an IV dose of Haldol. He states he was severely anxious and needs to get out of here. He was very claustrophobic and feels that the perez are closing in on him. At his assisted living facility, he can alleviate these feelings by going outside debris with fresh air. 07/14: Troponin peaked at 0.27, this morning 0.145 Telemetry: Review of systems: Physical exam: Assessment and plan: 1. Acute CHFrEF, without acute hypoxic respiratory failure, present on admission and active. 2. COPD with possible exacerbation, present on admission and active. 3. Chronic hypoxic respiratory failure, 2L, stable. 4. HTN, currently borderline hypotensive. 5. h/o PE on Eliquis. 6. NSTEMI, present on admission and active. The patient has troponins which are trending up to a plateau of 0.27. He declined a lab draw early this afternoon to further evaluate the trend of his troponin. Plan: 1. Continue telemetry monitoring 2. Daily weights, strict I/Os 3. Cardiac diet, Fluid restriction to 1.8L 4. Daily BMP, CBC, Mg 5. Serial troponin 6. IV Lasix 7. ASA daily 8. Bronchodilators. Time-based codin minutes spent with patient and on the chart (including review of chart, obtaining history, exam, reviewing outside data, placing orders, documenting exam and treatment plan, and counseling patient) Exam Vital Signs (past 8 hours): - 07/13/24 23:39 07/14/24 02:07 07/14/24 03:30 Temperature 96.6 F L 97 F L Pulse Rate 101 H 88 93 H Respiratory Rate 21 18 20 Blood Pressure 97/55 L 99/60 Pulse Oximetry 92 96 Oxygen Delivery Method Nasal Cannula Oxygen Flow Rate 3 2 3 Fraction of Inspired Oxygen 28 07/14/24 06:19 Temperature Pulse Rate 96 H Respiratory Rate 20 Blood Pressure Pulse Oximetry 93 Oxygen Delivery Method Nasal Cannula Oxygen Flow Rate 2 Fraction of Inspired Oxygen 28 Fraction of Inspired Oxygen 28 SaO2/FiO2 Ratio 328 Oxygen Delivery Method Nasal Cannula Oxygen Flow Rate 2 Objective Labs 07/14/24 05:32 07/14/24 05:32 Labs: Laboratory Results - last 24 hr 07/14/24 05:32 WBC 10.1 RBC 4.10 L Hgb 11.6 L Hct 36.0 L MCV 87.8 MCH 28.4 MCHC 32.3 RDW 17.0 H Plt Count 147 L Neut % (Auto) Not Reportable Lymph % (Auto) Not Reportable [place] % (Auto) Not Reportable Eos % (Auto) Not Reportable Baso % (Auto) Not Reportable Lymph # (Auto) Not Reportable [place] # (Auto) Not Reportable Baso # (Auto) Not Reportable Total Counted 100 Seg Neutrophils % 63.0 Band Neutrophils % 1.0 L Lymphocytes % (Manual) 27.0 Monocytes % (Manual) 6.0 Eosinophils % (Manual) 2.0 Basophils % (Manual) 1.0 Neutrophils # (Manual) 6464 H RBC Morphology See below Anisocytosis 1+ H Sodium 137 Potassium 4.1 Chloride 100 Carbon Dioxide 30 BUN 41 H Creatinine 1.14 Estimated GFR > 60 BUN/Creatinine Ratio 36.0 H Glucose 166 H Calcium 8.6 Total Bilirubin 0.9 AST 30 ALT 25 Alkaline Phosphatase 56 Troponin I 0.145 H* NT-Pro-B Natriuret Pep 5180 H Total Protein 7.1 Albumin 4.0 Globulin 3.1 Albumin/Globulin Ratio 1.3 [facility] Medical History Centrilobular emphysema Cigarette nicotine dependence Congestive heart failure Tobacco use Hypertension Diabetes History of pulmonary embolism COPD (chronic obstructive pulmonary disease) Systolic heart failure Social History household members: none Smoking Status: Current every day smoker Assessment & Plan Time-Based Coding :: [TOTAL MINUTES] spent with patient and on the chart (including review of chart, obtaining history, exam, reviewing outside data, placing orders, documenting exam and treatment plan, and counseling patient) on [DATE].
[2024-07-14 08:00] VITALS: BP 112/72; PULSE 63; RESP 21; TEMP 36; O2SAT 95
[2024-07-14] MEDS: METOPROLOL ER 25 MG TABLET PO (08:44)
[2024-07-14] MEDS: lisinopriL 5 MG TABLET 2.5 MG PO (08:45)
[2024-07-14] MEDS: ASPIRIN EC 81 MG TABLET PO (08:45)
[2024-07-14] MEDS: APIXABAN 5 MG TABLET PO (08:45)
[2024-07-14] MEDS: FUROSEMIDE 40 MG/4 ML VIAL IV (08:45)
[2024-07-14] MEDS: SPIRONOLACTONE 25 MG TABLET 12.5 MG PO (08:45)
[2024-07-14] MEDS: QUETIAPINE 25 MG TABLET PO (08:46)
[2024-07-14] MEDS: SODIUM CHLORIDE 0.9% 10 ML INJ (08:46)
--- NOTE | 2024-07-14 10:17 | PC.NURSE ---
Patient left AMA, given medications prior. He was getting is cigarettes in his room and opening them. Unsure if he was going to light up in the room. This RN explained to patient that this was a no smoking hospital and that he could not smoke outside. He then became upset and said that he wanted to leave. talked to patient, and he still wanted to leave. AMA paperwork filled out and signed and patient catching a taxi back to [place]. Left with all clothes and personal items
--- NOTE | 2024-07-14 11:12 | PM.DS.1 ---
History of Present Illness History of Present Illness Date Patient Seen: 07/14/24 Chief complaint: SOB Narrative: [address] [address] Progress Note Patient: Justin Peña MR#: [id number] : 1960 Acct:[id number] Age/Sex: 64 / M Admit Date: 07/12/24 Provider: Johnathon Oswald MD Subjective Subjective Date Patient Seen: 07/14/24 Interval history: Chief complaint: Severe dyspnea or shortness a breath with signs and symptoms of reactive airway disease, exacerbation of CHF and elevated troponins History of present illness: The patient presented from [facility] with acute dyspnea. He was found to have evidence of reactive airways, with acute respiratory distress and hypoxia. In addition he would elevated troponins vascular congestion on chest x-ray and BNP greater than 10,000 The patient suffers from severe claustrophobia and remains quite agitated at being in the facility this morning. He was intermittently threatening to leave, and cursing. He denies any chest pain. There was, apparently, conversation between the ED physician and Cardiology at [facility] last evening indicated a possible plan of transfer on Monday for coronary catheterization. It was hard to believe that this patient be able to comply with a transfer given his severe claustrophobia or and invasive cardiac procedure. Dr. Mejia Document Control Supervisor who recommended the patient be admitted and transferred to [facility] for cath on Monday. PMH of COPD and chronic hypoxic respiratory failure on 2L oxygen, CHFrEF, PE on Eliquis, HTN Hospital course: 07/13: This morning, he received Ativan and Seroquel for agitation and anxiety. Ultimately he was given an IV dose of Haldol. He states he was severely anxious and needs to get out of here. He was very claustrophobic and feels that the perez are closing in on him. At his assisted living facility, he can alleviate these feelings by going outside debris with fresh air. 07/14: Troponin peaked at 0.27, this morning 0.145 Telemetry: Review of systems: No fevers or chills No chest pain No cough No nausea vomiting diarrhea Physical exam: Alert and cogent chronically ill elderly gentleman Neck no JVD Heart rate and rhythm irregular Lungs with diminished breath sounds 2 to 3+ bipedal edema at ankles Assessment and plan: Patient left against medical advice discussed the risks to the patient including worsening of his condition debilitating injuries such as stroke or even patient acknowledged these risks and left against medical advice 1. Acute CHFrEF, without acute hypoxic respiratory failure, present on admission and active. 2. COPD with possible exacerbation, present on admission and active. 3. Chronic hypoxic respiratory failure, 2L, stable. 4. HTN, currently borderline hypotensive. 5. h/o PE on Eliquis. 6. NSTEMI, present on admission and active. The patient has troponins which are trending up to a plateau of 0.27. He declined a lab draw early this afternoon to further evaluate the trend of his troponin. Plan: 1. Continue telemetry monitoring 2. Daily weights, strict I/Os 3. Cardiac diet, Fluid restriction to 1.8L 4. Daily BMP, CBC, Mg 5. Serial troponin 6. IV Lasix 7. ASA daily 8. Bronchodilators. Time-based codin minutes spent with patient and on the chart (including review of chart, obtaining history, exam, reviewing outside data, placing orders, documenting exam and treatment plan, and counseling patient) Discharge Providers Provider Date of admission: 07/12/24 23:12 Discharge Date: 07/14/24 Primary care physician: David Lynne Consults: 07/13/24 00:07 Consult to Dietitian, Adult Routine Comment: Reason For Exam: WEIGHT GAIN Discharge provider: Johnathon Oswald MD Exam Vital Signs (past 8 hours): - 07/14/24 03:30 07/14/24 06:19 07/14/24 08:00 Temperature 97 F L 96.8 F L Pulse Rate 93 H 96 H 63 Respiratory Rate 20 20 21 Blood Pressure 99/60 112/72 Pulse Oximetry 96 93 95 Oxygen Delivery Method Nasal Cannula Oxygen Flow Rate 3 2 Fraction of Inspired Oxygen 28 Fraction of Inspired Oxygen 28 SaO2/FiO2 Ratio 328 Oxygen Delivery Method Nasal Cannula Oxygen Flow Rate 2 Objective Labs 07/14/24 05:32 07/14/24 05:32 Labs: Laboratory Results - last 24 hr 07/14/24 05:32 WBC 10.1 RBC 4.10 L Hgb 11.6 L Hct 36.0 L MCV 87.8 MCH 28.4 MCHC 32.3 RDW 17.0 H Plt Count 147 L Neut % (Auto) Not Reportable Lymph % (Auto) Not Reportable [place] % (Auto) Not Reportable Eos % (Auto) Not Reportable Baso % (Auto) Not Reportable Lymph # (Auto) Not Reportable [place] # (Auto) Not Reportable Baso # (Auto) Not Reportable Total Counted 100 Seg Neutrophils % 63.0 Band Neutrophils % 1.0 L Lymphocytes % (Manual) 27.0 Monocytes % (Manual) 6.0 Eosinophils % (Manual) 2.0 Basophils % (Manual) 1.0 Neutrophils # (Manual) 6464 H RBC Morphology See below Anisocytosis 1+ H Sodium 137 Potassium 4.1 Chloride 100 Carbon Dioxide 30 BUN 41 H Creatinine 1.14 Estimated GFR > 60 BUN/Creatinine Ratio 36.0 H Glucose 166 H Calcium 8.6 Total Bilirubin 0.9 AST 30 ALT 25 Alkaline Phosphatase 56 Troponin I 0.145 H* NT-Pro-B Natriuret Pep 5180 H Total Protein 7.1 Albumin 4.0 Globulin 3.1 Albumin/Globulin Ratio 1.3 PFSH Medical History Centrilobular emphysema Cigarette nicotine dependence Congestive heart failure Tobacco use Hypertension Diabetes History of pulmonary embolism COPD (chronic obstructive pulmonary disease) Systolic heart failure Social History household members: none Smoking Status: Current every day smoker Discharge Plan Discharge Plan Patient Disposition: Left Against Medical Advice Discharge orders & Medications Prescriptions: Continued furosemide [Lasix] 40 mg tablet 40 mg PO BID Qty: 60 0RF Eliquis 5 mg tablet 5 mg PO BID fluticasone propion-salmeterol [Advair HFA] 115-21 mcg/actuation HFA aerosol inhaler 2 puff inhalation BID mirtazapine 30 mg tablet 30 mg PO ONCE PM spironolactone 25 mg tablet 12.5 mg PO DAILY metoprolol succinate 25 mg tablet extended release 24 hr 25 mg PO DAILY lisinopril 2.5 mg tablet 2.5 mg PO DAILY Jardiance 10 mg tablet 10 mg PO DAILY albuterol sulfate 90 mcg/actuation HFA aerosol inhaler See Rx Instructions .ROUTE .COMPLEX Rx Instructions: 90-80MCG/ACT. 2 puff q4hrs as needed Incruse Ellipta 62.5 mcg/actuation blister with device 1 inh inhalation DAILY Follow up/Referrals: Naif Lynne,David [Primary Care Provider] - Visit Report/Discharge Packet Stand Alone Forms: Patient Portal/API, Stroke Signs & Symptoms, Patient Portal/API/Survey Discharge Data Primary Care Provider: Naif Lynne,See
--- NOTE | 2024-07-14 14:24 | CM.DPC ---
DCP AMA discharge Per MD and uniform attendant, pt wanting to leave AMA today and MD met bedside with pt and he still requests to sign AMA forms and leave the hospital. Pt tells uniform attendant that he has his wallet and plans to call taxi and pay to get back to [facility] today. SW attempted to call [facility] and left msg on RN line and also admin line with update on pt leaving AMA today and faxed discharge summary to [place] to review. YAMILETH Bonilla
== END 2024-07-14 10:00 | disposition left against medical advice (07) | DRG 280 ==
LOC: ED 21:51 → AC 23:12
PROVIDERS: Hospitalist; Admitting Provider Internal Medicine; Emergency Provider Family Medicine; PCP Anesthesiology Pediatric Anesthesiology; Referring Provider Family Medicine; Visit Provider Internal Medicine
DX: I11.0 Hypertensive heart disease with heart failure (principal); I50.23 Acute on chronic systolic (congestive) heart failure; I21.4 Non-ST elevation (NSTEMI) myocardial infarction; J96.11 Chronic respiratory failure with hypoxia; J43.2 Centrilobular emphysema; Z99.81 Dependence on supplemental oxygen; F40.240 Claustrophobia; F41.9 Anxiety disorder, unspecified; R45.1 Restlessness and agitation; Z86.711 Personal history of pulmonary embolism; Z79.01 Long term (current) use of anticoagulants; I95.9 Hypotension, unspecified; F17.200 Nicotine dependence, unspecified, uncomplicated; E11.9 Type 2 diabetes mellitus without complications; Z79.84 Long term (current) use of oral hypoglycemic drugs; Z79.51 Long term (current) use of inhaled steroids; Z88.5 Allergy status to narcotic agent
CPT/HCPCS: 36415; 71045; 80053; 82550; 82805; 83605; 83880; 84484; 85007; 85025; 85610; 85730; 93005; 94640; 96374; 96375; 99285; 99406; J1630; J1938; J2060; J2919; J7613

== ENCOUNTER → 2024-07-24 09:37 | Outpatient (ROUT) | payer MEDICARE, MEDICAID, SELFPAY ==
[2024-07-12 23:29] VITALS: BMI 31.7
[2024-07-24 09:54] LABS: Add Manual Diff / Slide Review NO; Basophils Absolute Auto 100 /uL (0-100); Basophils Percent Auto 0.6 % (0-2); Eosinophils Absolute Auto 200 /uL (0-450); Hematocrit 37.3 % (41-53); Hemoglobin 12.2 g/dL (13.5-17.5); Lymphocytes Absolute Auto 1600 /uL (1100-4500); Lymphocytes Percent Auto 15.6 % (25-40); Mean Corpuscular HGB Conc 32.7 % (30-36); Mean Corpuscular Hemoglobin 28.7 PG (26-34); Monocytes Absolute Auto 1000 /uL (0-900); Monocytes Percent Auto 10.2 % (3-14); Neutrophils Absolute Auto 7200 /uL (1500-7000); Neutrophils Percent Auto 71.6 % (50-75); Platelet Count 138 X10^3/uL (150-400); Red Blood Cell Count 4.24 X10^6/uL (4.5-5.9); Red Cell Distribution Width 16.8 % (11.6-14.8); White Blood Cell Count 10.1 X10^3/uL (4.5-11.0)
[2024-07-24 10:18] LABS: BUN Creatinine Ratio 21.4 (6-22); Blood Urea Nitrogen 24 mg/dL (9-20); Calcium 8.6 mg/dL (8.4-10.2); Carbon Dioxide 29 mmol/L (22-32); Chloride 99 mmol/L (98-107); Estimated Glomerular Filt Rate > 60 mL/min (>60); Glucose 157 mg/dL (70-99); HEMOLYSIS < 15 (0-50); Potassium 4.3 mmol/L (3.4-5.1); Sodium 138 mmol/L (137-145)
== END ==
LOC: LAB 09:37
PROVIDERS: PCP Anesthesiology Pediatric Anesthesiology; Visit Provider Registered Nurse
DX: J44.9 Chronic obstructive pulmonary disease, unspecified (principal)
CPT/HCPCS: 36415; 80048; 85025

== ENCOUNTER 2024-08-06 12:35 | Emergency (ER) | payer MEDICARE, MEDICAID, SELFPAY ==
[2024-07-12 23:29] VITALS: BMI 31.7
[2024-08-06] VITALS (13 sets, daily range): BP systolic 90–115; BP diastolic 53–84; PULSE 78–101; RESP 18–23; TEMP 36.5; O2SAT 2–98; BMI 29.2
--- NOTE | 2024-08-06 12:57 | ED.SKABFB ---
HPI - Skin/Abscess/Foreign Bdy General Chief complaint: Skin/Abscess/Foreign Body Stated complaint: Swelling in LLE Time Seen by Provider: 08/06/24 12:53 Source: patient and EMS Mode of arrival: EMS Limitations: no limitations History of Present Illness HPI narrative: 64-year-old gentleman who lives at [facility] living With a history of severe claustrophobia as well as invasive cardiac procedures. He was admitted to [facility] on July 14 with an acute exacerbation of his congestive heart failure, COPD, hypertension and NSTEMI. Recommendation was to transfer to [facility] for heart catheterization however the patient ended up leaving against medical advice due to his anxiety. he presents today complaining of approximately 2 days of increasing redness, swelling and discomfort in the left lower extremity. He has not had body aches, fevers, dyspnea or palpitations. He has not noticed any additional cough or shortness for breath. Related Data Home Medications Medication Instructions Recorded Confirmed albuterol sulfate 90 mcg/actuation See Rx Instructions .Route .COMPLEX 07/13/24 07/13/24 aerosol inhaler apixaban 5 mg tablet (Eliquis) 5 mg PO BID 07/13/24 07/13/24 empagliflozin 10 mg tablet 10 mg PO DAILY 07/13/24 07/13/24 (Jardiance) fluticasone propionate 115 2 puff inhalation BID 07/13/24 07/13/24 mcg-salmeterol 21 mcg/actuation HFA inhaler (Advair HFA) lisinopril 2.5 mg tablet 2.5 mg PO DAILY 07/13/24 07/13/24 metoprolol succinate 25 mg 25 mg PO DAILY 07/13/24 07/13/24 tablet,extended release 24 hr mirtazapine 30 mg tablet 30 mg PO ONCE PM 07/13/24 07/13/24 spironolactone 25 mg tablet 12.5 mg PO DAILY 07/13/24 07/13/24 umeclidinium 62.5 mcg/actuation 1 inh inhalation DAILY 07/13/24 07/13/24 blister powder for inhalation (Incruse Ellipta) Previous Rx's Medication Instructions Recorded furosemide 40 mg tablet (Lasix) 40 mg PO BID #60 tabs 07/10/24 doxycycline hyclate 100 mg capsule 100 mg PO BID #20 caps 08/06/24 furosemide 40 mg tablet 40 mg PO DAILY #5 tabs 08/06/24 Allergies Allergy/AdvReac Type Severity Reaction Status Date / Time codeine Allergy Severe Difficulty Verified 07/13/24 00:09 Breathing Review of Systems Review of Systems Narrative: Pertinent positive and negative findings as per HPI Patient History Medical History Centrilobular emphysema Cigarette nicotine dependence Congestive heart failure Tobacco use Hypertension Diabetes History of pulmonary embolism COPD (chronic obstructive pulmonary disease) Systolic heart failure Social History household members: none tobacco type: cigarettes Exam Initial Vital Signs Initial Vital Signs: Vital Signs Blood Pressure 103/84 08/06/24 12:40 General: Somewhat disheveled, chronically ill-appearing but in no acute distress HEENT: Moist mucous membranes, normal sclera with reactive pupils, Respiratory: Lungs with minor scattered wheeze, basilar crackles no rhonchi Cardiac: Regular rate and rhythm no murmurs no bruits Abdomen: Soft, nontender, no rebound or guarding, no flank pain Skin: lower extremities with chronic venous stasis changes, left lower extremity increasing erythema and edema Neurologic: Grossly neurologically intact with no obvious asymmetries or abnormalities Extremities: both legs have some edema, left significantly more with erythema to proximal calf Psych: Cooperative as his anxiety will allow, he is alert and otherwise appropriate Course Orders Ordered: ED Orders 08/06/24 13:15 US periph venous low extrem lt Stat 08/06/24 13:16 Complete Blood Count AUTO DIFF Stat Comprehensive Metabolic Panel Stat Lactate (Lactic Acid) Stat NT-proBNP (BNP-Adult 18+) Stat 08/06/24 14:20 Blood Culture Stat Discontinued Medications Doxycycline Hyclate (Doxycycline Hyclate 100 Mg Tablet) 100 mg PO NOW ONE Stop: 08/06/24 15:04 Last Admin: 08/06/24 15:17 Dose: 100 mg Documented By: IRENE Furosemide 60 mg/ Sodium (Chloride) 56 mls @ 112 mls/hr IV NOW ONE Stop: 08/06/24 15:04 Last Infusion: 08/06/24 16:16 Dose: Infused Documented By: Admin: 08/06/24 15:17 Dose: 112 mls/hr Documented By: IRENE Lorazepam (Lorazepam 0.5 Mg Tablet) 1 mg PO NOW ONE Stop: 08/06/24 13:02 Last Admin: 08/06/24 13:06 Dose: Not Given Documented By: RADHA Sertraline HCl (Sertraline 50 Mg Tablet) 25 mg PO NOW ONE Stop: 08/06/24 13:03 Last Admin: 08/06/24 13:06 Dose: Not Given Documented By: RADHA Vital Signs Vital signs: Vital Signs - 8 hr 08/06/24 12:40 08/06/24 12:42 08/06/24 12:46 Temperature 97.7 F Pulse Rate 98 H 78 Respiratory Rate 20 Blood Pressure 103/84 103/84 Pulse Oximetry 95 Oxygen Delivery Method Nasal Cannula Oxygen Flow Rate 2 08/06/24 13:00 08/06/24 13:01 08/06/24 13:01 Temperature Pulse Rate 93 H 92 H Respiratory Rate 19 20 Blood Pressure 90/53 L Pulse Oximetry 96 96 Oxygen Delivery Method Nasal Cannula Oxygen Flow Rate 2 08/06/24 13:02 08/06/24 13:02 08/06/24 13:30 Temperature Pulse Rate 91 H 96 H Respiratory Rate 18 19 Blood Pressure 99/60 Pulse Oximetry 96 98 Oxygen Delivery Method Oxygen Flow Rate 08/06/24 13:31 08/06/24 13:31 08/06/24 14:00 Temperature Pulse Rate 94 H 99 H Respiratory Rate Blood Pressure 107/57 L Pulse Oximetry 98 98 Oxygen Delivery Method Nasal Cannula Oxygen Flow Rate 2 08/06/24 14:30 08/06/24 14:30 08/06/24 15:00 Temperature Pulse Rate 94 H 100 H Respiratory Rate 20 23 Blood Pressure 107/63 Pulse Oximetry 97 Oxygen Delivery Method Oxygen Flow Rate 08/06/24 15:01 08/06/24 15:01 08/06/24 15:30 Temperature Pulse Rate 101 H 96 H Respiratory Rate 19 21 Blood Pressure 115/76 Pulse Oximetry 93 Oxygen Delivery Method Nasal Cannula Oxygen Flow Rate 2 08/06/24 15:30 Temperature Pulse Rate Respiratory Rate Blood Pressure 113/73 Pulse Oximetry 2 L Oxygen Delivery Method Nasal Cannula Oxygen Flow Rate MDM - Skin/Abscess/Foreign Bdy Lab Data 08/06/24 13:16 Labs: Lab Results 08/06/24 Range/Units 13:16 Sodium 133 L (137-145) mmol/L Potassium 4.6 (3.4-5.1) mmol/L Chloride 99 (98-107) mmol/L Carbon Dioxide 29 (22-32) mmol/L BUN 27 H (9-20) mg/dL Creatinine 1.10 (0.66-1.25) mg/dL Estimated GFR > 60 (>60) mL/min BUN/Creatinine Ratio 24.5 H (6-22) Glucose 119 H (70-99) mg/dL Lactate 1.3 (0.7-2.1) mmol/L Calcium 8.6 (8.4-10.2) mg/dL Total Bilirubin 0.8 (0.2-1.3) mg/dL AST 32 (17-59) IU/L ALT 19 (<50) IU/L Alkaline Phosphatase 53 (38-126) U/L NT-Pro-B Natriuret Pep 7040 H (<125) pg/mL Total Protein 7.3 (6.3-8.2) g/dL Albumin 4.1 (3.5-5.0) g/dL Globulin 3.2 (1.7-4.1) g/dL Albumin/Globulin Ratio 1.3 (1.0-2.8) MDM Narrative Medical decision making narrative: CC:Left lower extremity edema Complicating co-morbidities: congestive heart failure, COPD, significant anxiety Data collected from: patient Social determinants of health that may influence the patients condition: significant anxiety, currently lives in assisted living, left against medical advice with most recent hospital admission Medical records reviewed: discharge summary from July 14 with congestive heart failure and elevated troponin reviewed Differential considered: DVT, lower extremity cellulitis, worsening congestive heart failure Exam documented above, pertinent findings include: patient's blood pressure is slightly low however that does appear to be close to his baseline. No tachycardia, lungs with minor wheezing minor crackles again seems to be at his baseline and abdomen is benign. Left lower extremity is red warm and swollen to the proximal calf with no obvious source of infection but skin breakdown between the toes is noted Lab Test results independently reviewed as above. Pertinent findings: Independently reviewed EKG: CBC does not show dramatic leukocytosis no left shift, anemia is chronic and somewhat improved chemistries are reassuring with normal renal function BNP is slightly elevated at 7040 lactic acid is not elevated Imaging studies independently reviewed: ultrasound of the lower extremity does not show a DVT however it does describe a small simple appearing fluid collection in the medial aspect of the mid calf measuring 5.1 x 1.2 x 3.8 cm. Treatments: IV Lasix oral doxycycline Discussion: 64-year-old woman with a history of congestive heart failure, on oxygen at home comes in with increasing edema left side. There was no evidence of sepsis however with the leg as red and warm as it is I am going to place him on doxycycline for 10 days. His BNP is slightly higher than it was earlier this month. He is given an additional dose of 60 mg of Lasix in the emergency department and for the next 5 days I am going to add an additional 40 mg of Lasix to his current dose of 60 mg. Recommendation will be to take 60 mg in the morning 40 mg at lunch for the next 5 days. Regarding the fluid collection in the calf that was identified on ultrasound, focused clinical exam there is a slight increased area of tenderness there. With the description of simple appearing fluid my concern for an abscess is less likely. This concern is shared with him along with instructions to make sure he returns to the emergency department if he is not clearly improving. Discharge Plan Departure Patient Disposition: Home Clinical Impression: Cellulitis Qualifiers: Site of cellulitis: extremity Site of cellulitis of extremity: lower extremity Laterality: left Qualified Code(s): L03.116 - Cellulitis of left lower limb Congestive heart failure Qualifiers: Heart failure type: unspecified Heart failure chronicity: acute on chronic Qualified Code(s): I50.9 - Heart failure, unspecified Instructions: DI for Cellulitis -- Adult, DI for Heart Failure Activity Restrictions/Additional Instructions: thank you for coming in today fortunately, there is no evidence of a blood clot in your leg. You are not septic. I am concerned that you are developing a cellulitis and have given you your 1st dose of doxycycline, you will need to complete 10 days of this antibiotic I also want to increase your current Lasix dose, you said you were taking 60 mg in the morning, I would like you to increase that to 60 mg in the morning and 40 mg at lunch for the next 5 days prescriptions were transmitted to [facility] pharmacy electronically if you are getting worse, please return to the ER Prescriptions: New doxycycline hyclate 100 mg capsule 100 mg PO BID Qty: 20 0RF furosemide 40 mg tablet 40 mg PO DAILY Qty: 5 0RF Rx Instructions: total lasix dose to be 60mg am AND 40mg lunchtime for 5 days No Action furosemide [Lasix] 40 mg tablet 40 mg PO BID Qty: 60 0RF Eliquis 5 mg tablet 5 mg PO BID fluticasone propion-salmeterol [Advair HFA] 115-21 mcg/actuation HFA aerosol inhaler 2 puff inhalation BID mirtazapine 30 mg tablet 30 mg PO ONCE PM spironolactone 25 mg tablet 12.5 mg PO DAILY metoprolol succinate 25 mg tablet extended release 24 hr 25 mg PO DAILY lisinopril 2.5 mg tablet 2.5 mg PO DAILY Jardiance 10 mg tablet 10 mg PO DAILY albuterol sulfate 90 mcg/actuation HFA aerosol inhaler See Rx Instructions .ROUTE .COMPLEX Rx Instructions: 90-80MCG/ACT. 2 puff q4hrs as needed Incruse Ellipta 62.5 mcg/actuation blister with device 1 inh inhalation DAILY Referrals: Naif Lynne,See [Primary Care Provider] - Stand Alone Forms: Patient Portal/API/Survey
--- NOTE | 2024-08-06 13:15 | DI.US.S_ITS ---
PROCEDURE: US PERIPH VENOUS LOW EXTREM LT INDICATIONS: edema and erythema TECHNIQUE: Real-time imaging, as well as color and pulse Doppler interrogation, were performed of the lower extremity deep veins from the inguinal ligament to the popliteal fossa, with documentation of the visualized calf veins. COMPARISON: None. FINDINGS: The common femoral, femoral, popliteal, and the visualized calf veins are normally compressible, and free of intraluminal thrombus. Color and pulse Doppler demonstrate normal phasic intraluminal flow. There is normal augmentation response to distal compression maneuver. Small simple appearing fluid collection in the medial aspect of the mid calf measuring 5.1 x 1.2 x 3.8 cm. IMPRESSION: No findings of lower extremity deep venous thrombosis. Simple appearing fluid collection in the medial aspect of the mid left calf measuring approximately 5.1 x 1.2 x 3.8 cm. Dictated by: Jaron Marquez M.D. on 08/06/2024 at 13:50 Approved by: Jaron Marquez M.D. on 08/06/2024 at 13:51
[2024-08-06 13:39] LABS: Lactate (Lactic Acid) 1.3 mmol/L (0.7-2.1)
[2024-08-06 13:41] LABS: Alanine Aminotransferase 19 IU/L (<50); Albumin 4.1 g/dL (3.5-5.0); Albumin Globulin Ratio 1.3 (1.0-2.8); Alkaline Phosphatase 53 U/L (38-126); Aspartate Aminotransferase 32 IU/L (17-59); BUN Creatinine Ratio 24.5 (6-22); Bilirubin Total 0.8 mg/dL (0.2-1.3); Blood Urea Nitrogen 27 mg/dL (9-20); Calcium 8.6 mg/dL (8.4-10.2); Carbon Dioxide 29 mmol/L (22-32); Chloride 99 mmol/L (98-107); Estimated Glomerular Filt Rate > 60 mL/min (>60); Globulin 3.2 g/dL (1.7-4.1); Glucose 119 mg/dL (70-99); HEMOLYSIS 48 (0-50); Potassium 4.6 mmol/L (3.4-5.1); Sodium 133 mmol/L (137-145); Total Protein 7.3 g/dL (6.3-8.2)
[2024-08-06 13:50] LABS: NT-proBNP (BNP-Adult 18+) 7040 pg/mL (<125)
--- NOTE | 2024-08-06 14:29 | PC.NURSE ---
Lab comes to draw second set of cultures and patient refuses to be stuck a second time, confirmed with Dr Forde that second set of culture could be drawn from the IV 20 minutes after first set and she ok'd it.
[2024-08-06] MEDS: DOXYCYCLINE HYCLATE 100 MG TABLET PO (15:17)
[2024-08-06] MEDS: FUROSEMIDE 60 MG in SODIUM CHLORIDE 0.9% 50 ML 112 MG IV (15:17)
[2024-08-06 21:16] LABS: Add Manual Diff / Slide Review NO; Basophils Absolute Auto 100 /uL (0-100); Eosinophils Absolute Auto 300 /uL (0-450); Eosinophils Percent Auto 4.3 % (2-4); Hematocrit 38.8 % (41-53); Hemoglobin 12.7 g/dL (13.5-17.5); Lymphocytes Absolute Auto 1500 /uL (1100-4500); Lymphocytes Percent Auto 18.4 % (25-40); Mean Corpuscular HGB Conc 32.7 % (30-36); Mean Corpuscular Hemoglobin 28.3 PG (26-34); Mean Corpuscular Volume 86.4 fL (80-100); Monocytes Absolute Auto 1300 /uL (0-900); Monocytes Percent Auto 15.5 % (3-14); Neutrophils Absolute Auto 5000 /uL (1500-7000); Neutrophils Percent Auto 60.8 % (50-75); Platelet Count 191 X10^3/uL (150-400); Red Cell Distribution Width 16.7 % (11.6-14.8); White Blood Cell Count 8.1 X10^3/uL (4.5-11.0)
== END 2024-08-06 15:56 | disposition home or self-care (01) ==
PROVIDERS: Emergency Provider Emergency Medicine; PCP Anesthesiology Pediatric Anesthesiology
DX: L03.116 Cellulitis of left lower limb (principal); I50.9 Heart failure, unspecified
CPT/HCPCS: 36415; 80053; 83605; 83880; 85025; 87040; 93971; 96365; 99285; J1938

== ENCOUNTER → 2024-08-14 08:04 | Outpatient (ROUT) | payer MEDICARE, MEDICAID, SELFPAY ==
[2024-07-12 23:29] VITALS: BMI 31.7
[2024-08-14 08:46] LABS: BUN Creatinine Ratio 26.2 (6-22); Blood Urea Nitrogen 27 mg/dL (9-20); Calcium 9.1 mg/dL (8.4-10.2); Carbon Dioxide 28 mmol/L (22-32); Chloride 101 mmol/L (98-107); Estimated Glomerular Filt Rate > 60 mL/min (>60); Glucose 106 mg/dL (70-99); HEMOLYSIS < 15 (0-50); Magnesium 2.1 mg/dL (1.6-2.3); Potassium 4.4 mmol/L (3.4-5.1); Sodium 137 mmol/L (137-145)
== END ==
PROVIDERS: PCP Anesthesiology Pediatric Anesthesiology; Visit Provider Registered Nurse
DX: I50.9 Heart failure, unspecified (principal)
CPT/HCPCS: 36415; 80048; 83735

== ENCOUNTER 2024-08-31 03:25 | Emergency (ER) | payer MEDICARE, MEDICAID, SELFPAY ==
[2024-07-12 23:29] VITALS: BMI 31.7
[2024-08-31 03:25] VITALS: BP 125/80; PULSE 97; RESP 26; TEMP 36.6; O2SAT 94; BMI 25.9
--- NOTE | 2024-08-31 03:25 | ED.GENADULT ---
HPI - General Adult General Stated complaint: EKG changes Time Seen by Provider: 08/31/24 03:30 History of Present Illness HPI narrative: Patient is a 64-year-old male with a past medical history of CHF, COPD, hypertension, NSTEMI presents to the emergency department from [facility] for evaluation of abnormal EKG. According to medics patient had a routine EKG performed at around 10:00 p.m., they state that they got the results back and it showed that it was ?abnormal therefore was sent into the ED for further evaluation treatment. At time of evaluation patient stating that he is not having any symptoms, he is not complaining of any headache visual disturbances chest pain shortness breath fever chills nausea vomiting abdominal pain or any other GI/ symptoms time. Related Data Home Medications ?Medication ?Instructions ?Recorded ?Confirmed albuterol sulfate 90 mcg/actuation See Rx Instructions .Route .COMPLEX 07/13/24 07/13/24 aerosol inhaler apixaban 5 mg tablet (Eliquis) 5 mg PO BID 07/13/24 07/13/24 empagliflozin 10 mg tablet 10 mg PO DAILY 07/13/24 07/13/24 (Jardiance) fluticasone propionate 115 2 puff inhalation BID 07/13/24 07/13/24 mcg-salmeterol 21 mcg/actuation HFA inhaler (Advair HFA) lisinopril 2.5 mg tablet 2.5 mg PO DAILY 07/13/24 07/13/24 metoprolol succinate 25 mg 25 mg PO DAILY 07/13/24 07/13/24 tablet,extended release 24 hr mirtazapine 30 mg tablet 30 mg PO ONCE PM 07/13/24 07/13/24 spironolactone 25 mg tablet 12.5 mg PO DAILY 07/13/24 07/13/24 umeclidinium 62.5 mcg/actuation 1 inh inhalation DAILY 07/13/24 07/13/24 blister powder for inhalation (Incruse Ellipta) Previous Rx's ?Medication ?Instructions ?Recorded furosemide 40 mg tablet (Lasix) 40 mg PO BID #60 tabs 07/10/24 doxycycline hyclate 100 mg capsule 100 mg PO BID #20 caps 08/06/24 furosemide 40 mg tablet 40 mg PO DAILY #5 tabs 05/27/25 Allergies Allergy/AdvReac Type Severity Reaction Status Date / Time codeine Allergy Severe Difficulty Verified 08/31/24 03:25 Breathing Review of Systems Review of Systems Narrative: General: Denies fever, chills, weight loss HEENT: Denies headache, eye drainage, eye irritation, head trauma, sore throat, voice change Cardiovascular: Positive abnormal EKG Denies any chest pain, palpitations, tachycardia Respiratory: Denies any shortness of breath, cough, wheeze, stridor GI/: Denies any abdominal pain, nausea, vomiting, diarrhea, bright red blood per rectum, melanotic stools, urinary frequency, urinary retention, dysuria, hematuria MSK: Denies any joint pain, muscle pains, swelling Skin: Denies any rashes, lesions, discoloration Neuro: Denies any headache, lightheadedness, dizziness, fainting, weakness Psych: Denies SI/HI Patient History Medical History Centrilobular emphysema Cigarette nicotine dependence Congestive heart failure Tobacco use Hypertension Diabetes History of pulmonary embolism COPD (chronic obstructive pulmonary disease) Systolic heart failure Social History household members: none tobacco type: cigarettes Exam Narrative Exam Narrative: General: Cooperative, well-developed, not in acute distress HEENT: Normocephalic, atraumatic, PERRLA, normal sclera, eyelids normal Neck: Active full range of motion, atraumatic Chest: Normal to inspection, negative crepitus, no overlying erythema ecchymosis Respiratory: Normal respiratory effort, not in acute respiratory distress, clear to auscultation bilaterally negative cough, wheeze, tachypnea, rhonchi, rales Cardiology: Regular rate rhythm negative gallop, murmur, rubs GI/: No tenderness to palpation, soft, non rigid, normal to inspection, exam deferred MSK: Full active range of motion in all 4 extremities, atraumatic, no tenderness to palpation of any bony prominences Skin: No rashes or lesions noted Neuro: Alert awake oriented x3, moves all 4 extremities spontaneously, cranial nerves intact, able to answer all questions appropriately follows commands appropriately Psych: Cooperative, negative suicidal or homicidal ideations Course Orders Ordered: ED Orders 08/31/24 03:24 EKG-12 Lead Stat Medical Decision Making Differential Diagnosis Differential Diagnosis: Abnormal EKG, normal exam ECG Data Interpretation: EKG interpreted by ED physician sinus 97 beats per minute QTC 467, T-wave flattening/inversion noted to the V4 through V6 leads, this is similar to previous performed on 07/12/2024 MDM Narrative Medical decision making narrative: Patient is a 64-year-old male with a past medical history of CHF, COPD, NSTEMI, presenting to the emergency department from skilled facility, [place], or abnormal EKG. According to medics they were called due to the fact that patient had a routine EKG performed at around 10:00 p.m. yesterday states that the facility got the results and were told that it was abnormal and wanted patient to be evaluated. At time of evaluation patient not complaining of any chest pain shortness breath fever chills nausea vomiting abdominal pain or any other GI/ symptoms time. Patient's vital signs stable. Patient's EKG nonischemic in nature, patient without any active chest pain shortness of breath. Therefore additional workup not warranted. Patient was given strict return precautions and was instructed to follow up with the primary care and Cardiology in outpatient setting, he verbalized understanding of this and agrees to being discharged home with outpatient follow up Discharge Plan Departure Patient Disposition: Home Clinical Impression: Normal exam Activity Restrictions/Additional Instructions: Please follow up with primary care and Cardiology Please read the discharge instructions sheet carefully and bring all papers to all doctor follow-up visits, as it may contain information that your doctor may want to see. Disease processes change and evolve, if your symptoms worsen or if you develop any new symptoms that are concerning to you please return for evaluation. Your evaluation today does not show any evidence of any life-threatening/serious illnesses requiring admission to the hospital or surgery. Please follow-up with your doctor for re-evaluation in approximately 1 day. Seek immediate medical attention for any worrisome symptoms. *If you do not have a primary care provider please contact the [facility] Resource line at [phone]. They will ask some questions about your medical history and help get you set up with a doctor in the community. Prescriptions: No Action furosemide [Lasix] 40 mg tablet 40 mg PO BID Qty: 60 0RF Eliquis 5 mg tablet 5 mg PO BID fluticasone propion-salmeterol [Advair HFA] 115-21 mcg/actuation HFA aerosol inhaler 2 puff inhalation BID mirtazapine 30 mg tablet 30 mg PO ONCE PM spironolactone 25 mg tablet 12.5 mg PO DAILY metoprolol succinate 25 mg tablet extended release 24 hr 25 mg PO DAILY lisinopril 2.5 mg tablet 2.5 mg PO DAILY Jardiance 10 mg tablet 10 mg PO DAILY albuterol sulfate 90 mcg/actuation HFA aerosol inhaler See Rx Instructions .ROUTE .COMPLEX Rx Instructions: 90-80MCG/ACT. 2 puff q4hrs as needed Incruse Ellipta 62.5 mcg/actuation blister with device 1 inh inhalation DAILY doxycycline hyclate 100 mg capsule 100 mg PO BID Qty: 20 0RF furosemide 40 mg tablet 40 mg PO DAILY Qty: 5 0RF Rx Instructions: total lasix dose to be 60mg am AND 40mg lunchtime for 5 days Referrals: Naif Lynne,See [Primary Care Provider, Pediatrics] Stand Alone Forms: Patient Portal/API
--- NOTE | 2024-08-31 03:28 | EKG_ITS ---
[address] [id number] Test Date: 2024-08-31 Pat Name: Justin Peña Department: [facility] Room: Gender: Male [employer] Agent: STEFANIA HARTMAN : 1960 Requested By: Order Number: [id number] Reading MD: Roberto Ge MD Measurements Intervals [place] Rate: 97 P: 78 UT: 156 QRS: 37 QRSD: 96 T: 221 QT: 368 QTc: 467 Interpretive Statements Normal sinus rhythm Septal infarct , age undetermined ST & T wave abnormality, consider inferolateral ischemia Electronically Signed On 09-01-2024 6:40:55 PDT by Roberto Ge MD
== END 2024-08-31 03:40 | disposition home or self-care (01) ==
PROVIDERS: Emergency Provider Student in an Organized Health Care Education/Training Program; PCP Anesthesiology Pediatric Anesthesiology
DX: R94.31 Abnormal electrocardiogram [ECG] [EKG] (principal)
CPT/HCPCS: 93005; 93010; 99281; 99283